=== PATIENT | female | born 1990 | race African-American/Black ===

== ENCOUNTER 2020-02-06 21:05 | Emergency (ER) | payer OTHER ==
--- OUTSIDE RECORDS SUMMARY | 2020-02-06 21:07 | XMS REPORT ---
:1990 Author Organization [facility] t Address [address] [place] [address] Care Team Providers Name Role Phone Unavailable Unavailable Unavailable Problems This patient has no known problems. Allergies, Adverse Reactions, Alerts This patient has no known allergies or adverse reactions. Medications This patient has no known medications.
--- OUTSIDE RECORDS SUMMARY | 2020-02-06 21:08 | XMS REPORT | Summary of Care ---
:1990 Author Organization [facility] - [facility] Address [address] [place] [address] Care Team Providers Name Role Phone Pcp, Does Not Have A Primary Care Provider Encounter Details Date Type Department Care Team Description 12/27/2019 Orders Only [facility] Doctor Unassigned, No [address] [facility] [place] [address] [address] [place] [address] Allergies No Known Allergiesdocumented as of this encounter (statuses as of 12/29/2019) Medications Medication Sig Dispensed Refills Start Date End Date Status vitamin w/FA Take 1 tablet by 100 tablet 3 02/16/2019 Active tabletIndications: mouth daily. Single liveborn, born in hospital, delivered by vaginal delivery, 40 weeks gestation of , Anemia of mother in , antepartum docusate calcium 240 Take 1 capsule by 30 capsule 1 02/16/2019 Active mg mouth once daily capsuleIndications: as needed for Single liveborn, born Constipation. in hospital, delivered by vaginal delivery, 40 weeks gestation of , Anemia of mother in , antepartum ferrous sulfate 325 Take 1 tablet by 60 tablet 2 02/16/2019 Active mg (65 mg iron) mouth 2 (two) tabletIndications: times daily. Single liveborn, born in hospital, delivered by vaginal delivery, 40 weeks gestation of , Anemia of mother in , antepartum ibuprofen 600 mg Take 1 tablet by 30 tablet 0 12/16/2019 Active tabletIndications: mouth every 6 Missed (six) hours. docusate 100 mg Take 1 capsule by 30 capsule 0 12/16/2019 Active capsuleIndications: mouth daily. Missed documented as of this encounter (statuses as of 12/29/2019) Active Problems Problem Noted Date Labor and delivery, indication for care 12/15/2019 18 weeks gestation of 12/15/2019 Liveborn , of [place] , born in [facility] by vaginal 02/16/2019 delivery Anemia of mother in , antepartum 02/15/2019 40 weeks gestation of 02/14/2019 Estimated Date of Delivery Comments Yes 05/16/2020 Based on Other Basis , Per patient documented as of this encounter (statuses as of 12/29/2019) Immunizations Name Administration Dates Next Due Rho (d) Immune Globulin 02/16/2019 (Deferred: Contraindicati on) documented as of this encounter Social History Tobacco Use Types Packs/Day Years Used Date Never Smoker Smokeless Tobacco: Never Used Alcohol Use Drinks/Week oz/Week Comments No Estimated Date of Delivery Comments Yes 05/16/2020 Based on Other Basis , Per patient Sex Assigned at Date Recorded Not on file Job Start Date Occupation Industry Not on file Not on file Not on file Travel History Travel Start Travel End No recent travel history available. documented as of this encounter Last Filed Vital Signs Not on filedocumented in this encounter Plan of Treatment Date Type Specialty Care Team Description 01/01/2020 Routine Visit [facility] Satellites Provider, [facility] Health Maintenance Due Date Last Done Comments VARICELLA VACCINES (1 of 2 - 1991 2-dose childhood series) DTaP,Tdap,and Td Vaccines (1 - 2001 Tdap) PAP SMEAR 2011 INFLUENZA VACCINE (#1) 2019 PNEUMOCOCCAL 0-64 YEARS COMBINED Aged Out No longer eligible based on SERIES patient's age to complete this topic documented as of this encounter Procedures Procedure Name Priority Date/Time Associated Diagnosis Comme nts SCANNED LAB RESULTS Routine 12/27/2019 12:01 AM CDT documented in this encounter Results SCANNED LAB RESULTS (12/27/2019 12:01 AM CDT) Specimen Performing Organization Address City/State/Zipcode Phone Number HIM documented in this encounter Insurance Payer Benefit Plan / Subscriber ID Effective Phone Address T ype Group Dates [employer] xxxxxxxxx 2019-[address] [place] [id number] [place] [address] [facility] xxxxxxxxx 2019-[address]se [address] Medic aid HEALTH CHOICE - [place] [id number] [facility] MEDICAID [place], [place] [phone] documented as of this encounter
--- OUTSIDE RECORDS SUMMARY | 2020-02-06 21:08 | XMS REPORT | Summary of Care ---
:1990 Author Organization [facility] - [facility] Address [address] [place] [address] Care Team Providers Name Role Phone Jessica Cespedes Insurance Hmo Pcp, Does Not Have A Primary Care Provider Encounter Details Date Type Department Care Team Description 11/26/2019 Orders Only [facility] Doctor Unassigned, No [address] [facility] [place] [address] [address] [place] [phone] Allergies No Known Allergiesdocumented as of this encounter (statuses as of 01/03/2020) Medications Medication Sig Dispensed Refills Start Date [...] , Anemia of mother in , antepartum documented as of this encounter (statuses as of 01/03/2020) Active Problems Problem Noted Date Labor and delivery, indication for care 12/15/2019 18 weeks gestation of 12/15/2019 Liveborn , of [place] , born in [facility] by vaginal 02/16/2019 delivery Anemia of mother in , antepartum 02/15/2019 40 weeks gestation of 02/14/2019 documented as of this encounter (statuses as of 01/03/2020) Immunizations Name Administration Dates Next Due Rho (d) Immune Globulin 02/16/2019 (Deferred: Contraindicati on) documented as of this encounter Social History Tobacco Use Types Packs/Day Years Used Date Never Smoker Smokeless Tobacco: Never Used Alcohol Use Drinks/Week oz/Week Comments No Sex Assigned at Date Recorded Not on file Job Start Date Occupation Industry Not on file Not on file Not on file Travel History Travel Start Travel End No recent travel history available. documented as of this encounter Last Filed Vital Signs Not on filedocumented in this encounter Plan of Treatment Health Maintenance Due Date Last Done Comments VARICELLA VACCINES (1 of 2 - 1991 2-dose childhood series) DTaP,Tdap,and Td Vaccines (1 - 2001 Tdap) PAP SMEAR 2011 INFLUENZA VACCINE (#1) 2019 PNEUMOCOCCAL 0-64 YEARS COMBINED Aged Out No longer eligible based on SERIES patient's age to complete this topic documented as of this encounter Procedures Procedure Name Priority Date/Time Associated Diagnosis Comme nts AUTHORIZATION FOR RELEASE Routine 11/26/2019 12:01 AM OF PHI [employer] documented in this encounter Results Not on filedocumented in this encounter Insurance Payer Benefit Plan / Subscriber ID Effective Phone Address [facility] xxxxxxxxx 2019-Prese [address] Medic aid HEALTH CHOICE - HEALTH CHOICE nt [id number] [employer] MEDICAID [place], [place] [id number] documented as of this encounter
--- OUTSIDE RECORDS SUMMARY | 2020-02-06 21:08 | XMS REPORT | Summary of Care ---
:1990 Author Organization [facility] - [facility] Address [address] [place] [id number] Care Team Providers Name Role Phone Jessica Cespedes Insurance Hmo Pcp, Does Not Have A Primary Care Provider Reason for Referral (Routine) Status Reason Specialty Diagnoses / Referred By Contact Refe rred To Procedures Contact New Request Diagnoses Missed Kvng Simmons, Procedures DISCHARGE FOLLOW-UP: [facility] [address] [place] [address]. [place], [place] [address] Phone: Reason for Visit Auth/Cert Status Reason Specialty Diagnoses / Referred By Contact Refe rred To Contact Procedures Obstetrics Diagnoses Term gestation membrane rupture [address] [address] Phone: Fax: Encounter Details Date Type Department Care Team Description 12/15/2019 - Hospital Encounter Obstetrics and Mela Jackson 18 we eks gestation 12/16/2019 Gynecology ([id number] Del Real MD of [address] [place] [address] [id number] [place] [address] [id number] Allergies No Known Allergiesdocumented as of this encounter (statuses as of 12/16/2019) Medications Medication Sig Dispensed Refills Start Date End Date Status vitamin Take 1 tablet 100 tablet 3 02/16/2019 Active w/FA by mouth tabletIndications daily. : Single liveborn, born in hospital, delivered by vaginal delivery, 40 weeks gestation of , Anemia of mother in , antepartum docusate calcium Take 1 capsule 30 capsule 1 02/16/2019 Active 240 mg by mouth once capsuleIndication daily as s: Single needed for liveborn, born in [facility] hospital, delivered by vaginal delivery, 40 weeks gestation of , Anemia of mother in , antepartum ferrous sulfate Take 1 tablet 60 tablet 2 02/16/2019 Active 325 mg (65 mg by mouth 2 iron) (two) times tabletIndications daily. : Single liveborn, born in hospital, delivered by vaginal delivery, 40 weeks gestation of , Anemia of mother in , antepartum ibuprofen 600 mg Take 1 tablet 30 tablet 0 12/16/2019 Active tabletIndications by mouth every : Missed 6 (six) hours. docusate 100 mg Take 1 capsule 30 capsule 0 12/16/2019 Active capsuleIndication by mouth s: Missed daily. ibuprofen 600 mg Take 1 tablet 30 tablet 1 02/16/2019 12/16/19 20 Discontinued tabletIndications by mouth every : Single 6 (six) hours liveborn, born in as needed for hospital, Pain (scale delivered by 1-3) or Pain vaginal delivery, (scale 4-6) 40 weeks (Pain). Take gestation of with food or , Anemia milk. of mother in , antepartum documented as of this encounter (statuses as of 12/16/2019) Active Problems Problem Noted Date Labor and delivery, indication for care 12/15/2019 18 weeks gestation of 12/15/2019 Liveborn infant, of led[place]ma , born in [facility] by vaginal 02/16/2019 delivery Anemia of mother in , antepartum 02/15/2019 40 weeks gestation of 02/14/2019 Estimated Date of Delivery Comments Yes 05/16/2020 Based on Other Basis , Per patient documented as of this encounter (statuses as of 12/16/2019) Immunizations Name Administration Dates Next Due Rho [...] of this encounter Last Filed Vital Signs Vital Sign Reading Time Taken Comments Blood Pressure 109/63 12/16/2019 8:00 AM CDT Pulse 82 12/16/2019 8:00 AM CDT Temperature 36.8 C (98.3 F) 12/16/2019 8:00 AM CDT Respiratory Rate 18 12/16/2019 8:00 AM CDT Oxygen Saturation 100% 12/16/2019 8:00 AM CDT Inhaled Oxygen Concentration - - Weight 68 kg (150 lb) 12/15/2019 3:00 AM CDT Height - - Body Mass Index 25.75 02/15/2019 5:06 AM CDT documented in this encounter Discharge Summaries Barbara Díaz MD - 12/16/2019 7:38 AM CDT DISCHARGE SUMMARY - ADMIT DATE: 12/15/2019 DISCHARGE DATE: 12/16/2019 ATTENDING MD AT DISCHARGE: Kvng Simmons MD RESIDENT MD: Barbara Díaz MD REASON FOR ADMISSION 18 weeks gestation of FINAL DIAGNOSIS: 18 weeks gestation of Labor and delivery, indication for care SECONDARY DIAGNOSIS: Past Medical History: Diagnosis Date Anemia of mother in , antepartum 02/15/2019 STD (sexually transmitted disease) PROCEDURES: Procedure: DILATION AND CURETTAGE CPT(R) Code: 34852 - UT D&C AFTER DELIVERY HOSPITAL COURSE: Briefly, Sivakumar Campbell is a 29 year old who was admitted to [facility] on 12/15/2019 for missed . She underwent a Cephalic vaginal delivery. During this hospital admission she was also treated for hemorrhage with medications. She was ambulating, tolerating aregular diet with good pain control on day # 1. The patient is medically stable for discharge home to the care of her family with care instructions reviewed and with home meds prescribed. She is to follow-up in clinic as directed. CONDITION: Good DIET: Regular Diet; Texture: Regular Regular Diet; Texture: Regular. ACTIVITY: Physical activities as tolerated. No strenuous exercise or heavy lifting until 6-8 weeks . DISCHARGE MEDICATIONS: Current Discharge Medication List START taking these medications Details docusate (COLACE) 100 mg Take 100 mg by mouth daily. Qty: 30 capsule, Refills: 0 Start date: 12/16/2019 Associated Diagnoses: Missed CONTINUE these medications which have CHANGED Details ibuprofen (IBU) 600 mg Take 600 mg by mouth every 6 (six) hours. Qty: 30 tablet, Refills: 0 Start date: 12/16/2019 Associated Diagnoses: Missed CONTINUE these medications which have NOT CHANGED Details docusate calcium (SURFAK) 240 mg Take 240 mg by mouth once daily as needed for Constipation. Qty: 30 capsule, Refills: 1 Associated Diagnoses: Single liveborn, born in hospital, delivered by vaginal delivery; 40 weeks gestation of ; Anemia of mother in , antepartum ferrous sulfate 325 mg Take 325 mg by mouth 2 (two) times daily. Qty: 60 tablet, Refills: 2 Associated Diagnoses: Single liveborn, born in hospital, delivered by vaginal delivery; 40 weeks gestation of ; Anemia of mother in , antepartum vitamin w/FA (PRENATABS RX) 1 tablet Take 1 tablet by mouth daily. Qty: 100 tablet, Refills: 3 Associated Diagnoses: Single liveborn, born in hospital, delivered by vaginal delivery; 40 weeks gestation of ; Anemia of mother in , antepartum WOUND CARE: The patient was instructed to keep delivery lacerations (if any) clean and dry with soap and water in shower, dry gently with clean towel. She was instructed to return to ER if Temp > 101F, foul-smelling vaginal discharge, headache unresolved with pain medications, visual disturbances including double or blurry vision, seeing spots, upper abdominal pain, or vaginal bleeding greater than 1 pad per hour. Pelvic rest 4-6 weeks, and no heavy lifting. DISCHARGE: Discharged: Home FOLLOW-UP APPOINTMENT: No future appointments. Barbara Díaz MD Associated attestation - Kvng Simmons MD - 12/16/2019 8:08 AM CDTI was faculty on 12/16/2019 and agree with assessment and note by Dr. Díaz . Patient has been evaluated by provider and is deemed stable for discharge. See summary Kvng Simmons MD documented in this encounter Discharge Instructions Sary Zuniga RN - 12/16/2019 Patient Discharge Instructions Discharge date: 12/16/2019 Procedure(s): Procedure(s): DILATION AND CURETTAGE Discharge Orders Regular Diet; Texture: Regular. Texture Regular. Diabetic: No Discharge Condition - GOOD Discharge Condition: GOOD Discharge Activity: - Ambulate with Pelvic Rest x 6 weeks DISCHARGE FOLLOW-UP: [facility] Order Comments: For Patients - return to clinic in 5-7 days for staple removal. If [facility] clinic, Nursing Staff to call clinic for follow-up appointment. [facility]: 2 Weeks Patient Discharge Instructions - Vaginal Delivery Order Comments: Return to ER if Temp > 100.4 F, headache unresolved with pain medications, visual disturbances including double or blurry vision, seeing spots, or upper abdominal pain. Pelvic rest 4 to 6 weeks, and no heavy lifting. Follow instructions as indicated below: 1. The medication that was used will be acting in your system for the next 24 hours, so you might feel a little drowsy, with impaired judgment and or motor function. This feeling should go wear off. Because the medication is still in your system for the next 24 hours you SHOULD NOT: Drive a car, operate machinery or power tool. Drink any alcohol beverages (including beer or wine). Make any important decisions or sign any legal documents. 2. You should rest the remainder of the day and not engage in any physical activity. Move slowly today. After lying down, sit on the edge of the bed for a moment before standing. YOU ARE RESPONSIBLEFOR HAVING SOMEONE AT HOME WITH YOU DURING THE AFTERNOON AND NIGHT IMMEDIATELY FOLLOWING YOUR SURGERY. Patient should cough and deep breathe every 2-4 hours while awake to avoid respiratory complications. 4. Lifting: {IP DISCHARGE INSTRUCTIONS LIFTIN::"No medical restrictions"} 5. Weight: In general, sudden weight gains or losses should be reported to your provider. Cardiac patients should weigh daily and notify their provider for a weight gain of 3 pounds per day or 5 pounds per week. 6. Tobacco Avoidance: Follow recommendations below 7. Because the medications used could procedure some residual nausea and vomiting after you go home,you should eat lightly today, starting with clear liquids (broth, soft drinks, apple juice, jello) and toast or crackers, progressing to bland solid foods and then to your normal diet as tolerated, unle ss otherwise stated by your surgeon. If you get sick, wait a couple of hours and then begin to eat. After 24 hours the nausea should be gone. 8. You may experience some pain and your physician will advise you on what to take for discomfort. This should be taken as directed. If the pain is not relieved, contact your physician. You may alsohave a sore throat from the airway that was in place. You may uses lozenges, throat spray (such as C hloraseptic), or warm salt water gargles for symptomatic relief. 9. If you feel warm, take your temperature. If it is 101 degrees or above call your physician. 10. If you are unable to urinate within five hours after your procedure, call your physician. 11. The type of surgery performed will determine how much bleeding (if any) to expect. Normally, some spotting might occur. If your dressing pad becomes saturated, notify your physician. Elevate surgical site, if applicable, to reduced swelling and pain. 12. Wound/dressing care: Tips on preventing a surgical site infection.. Dont smoke. It is best to quit at least 30 days before surgery, but quitting after surgery is also helpful. If you are diabetic, keep your blood sugar well controlled. WASH YOUR HANDS. Keep your wound clean and remember to wash your hands before and after contact with the area. All health care workers should also wash their hands or use an alcohol based hand rub prior to examining you. If antibiotics are prescribed, take them as directed. Finish the entire course of antibiotics. Call your doctor if you have signs of infection: ? Increased tenderness at the surgical site ? Red streaks or increased redness of the area ? Bad-smelling discharge from the incision ? Fever of 101F or higher ? General tired feeling that doesnt improve 13. Other discharge instructions: {DC IP DISCHARGE INSTRUCTIONS OTHER:21273} 14. Special Instructions: Take Home Medications These are medications ordered for you by your healthcare provider. Do not take any other medications or supplements unless advised by your healthcare provider. Current Discharge Medication List START taking these medications Details docusate 100 mg capsule Take 1 capsule by mouth daily. Qty: 30 capsule, Refills: 0 Associated Diagnoses: Missed CONTINUE these medications which have CHANGED Details ibuprofen 600 mg tablet Take 1 tablet by mouth every 6 (six) hours. Qty: 30 tablet, Refills: 0 Associated Diagnoses: Missed CONTINUE these medications which have NOT CHANGED Details docusate calcium 240 mg capsule Take 1 capsule by mouth once daily as needed for Constipation. Qty: 30 capsule, Refills: 1 Associated Diagnoses: Single liveborn, born in hospital, delivered by vaginal delivery; 40 weeks gestation of ; Anemia of mother in , antepartum ferrous sulfate 325 mg (65 mg iron) tablet Take 1 tablet by mouth 2 (two) times daily. Qty: 60 tablet, Refills: 2 Associated Diagnoses: Single liveborn, born in hospital, delivered by vaginal delivery; 40 weeks gestation of ; Anemia of mother in , antepartum vitamin w/FA tablet Take 1 tablet by mouth daily. Qty: 100 tablet, Refills: 3 Associated Diagnoses: Single liveborn, born in hospital, delivered by vaginal delivery; 40 weeks gestation of ; Anemia of mother in , antepartum Follow-up appointments: Your follow up appointment with your surgeon has been made. Appointment Date: , Appointment Time . For questions regarding follow-up instructions call the [facility] Hotline at or If you experience any of the following symptoms , please follow up with . For worsening symptoms/changing condition/problems or questions: Non-emergency/urgent: Call the [facility] Hotline at or or Emergency: Go to the closest emergency room or call 456 Translated by Date Time If you receive the patient satisfaction survey by mail please complete and return and let us know how we are doing. TOBACCO AVOIDANCE Exposure to tobacco either from smoking or from second hand (environmental) smoke or smokeless tobacco (snuff) is damaging to your health. This information is to encourage everyone to avoid tobacco exposure. It is recommended that you: ? If you smoke or use smokeless tobacco, we encourage you to quit. ? If you have already quit smoking, continue your good work! ? If you do not smoke or use smokeless tobacco, do not start. ? Avoid secondhand smoke. Additional Resources You may want to contact these organizations for further information on smoking and how to quit. [place] [employer], http://www.lungusa.org/stop-smoking/ [place] [employer], http://www.cancer.org/Healthy/StayAwayfromTobacco/index [place] [employer], http://www.heart.org/HEARTORG/GettingHealthy/QuitSmoking/Quit-Smoking_[facility] _001085_SubHomePage.jsp AttachmentsThe following attachments cannot be sent through Care Everywhere. Miscarriage, Discharge Instructions ([place])Miscarriage,Understanding: During a Miscarriage ([place])Miscarriage,Understanding: Emotions ([place]) Miscarriage,Understanding: Recovery ([place])documented in this encounter Progress Notes Deya Cole MD - 12/16/2019 7:07 AM CDTR1 [facility] CALL PROGRESS NOTE Russellalberto Linares Shannan [id number] 12/16/2019, 7:07 AM Notified by RN that patient would like to go home as early as possible this morning. Deya Cole MD PGY-1, Obstetrics and Gynecology Barbara Bailey MD - 12/16/2019 6:54 AM CDT PROGRESS NOTE 12/16/2019 6:54 AM Subjective: Overnight patient had no complaints. Her pain is well controlled on oral pain medications. She is tolerating a regular diet. She has passed flatus. She is ambulating without difficulty. Lochia is Scant. She is urinating without hua. Patient denies chest pain, SOB, n/v, headache, RUQ pain, vision changes, dizziness. Objective: VITALS: Patient Vitals for the past 24 hrs: BP Temp Temp src Pulse Resp SpO2 12/16/19 0430 106/52 36.3 C (97.3 F) Oral 74 17 98 % 12/15/19 2245 109/51 36.7 C (98 F) Oral 78 17 100 % 12/15/19 2100 89 100 % 12/15/19 1807 109/52 37 C (98.6 F) Oral 93 18 100 % 12/15/19 1600 114/60 36.7 C (98.1 F) Axillary 82 18 100 % 12/15/19 1300 107/65 74 18 100 % 12/15/19 1200 (!) 115/91 78 18 100 % 12/15/19 1100 109/54 72 18 99 % 12/15/19 1000 111/66 76 18 100 % 12/15/19 0900 111/64 77 17 100 % 12/15/19 0830 107/62 72 18 98 % 12/15/19 0800 114/66 76 18 100 % 12/15/19 0730 110/72 83 18 100 % 12/15/19 0700 117/63 36.9 C (98.4 F) Oral 72 16 100 % PE: General: patient alert and in no acute distress Lungs: clear to auscultation bilaterally Cardiology: regular rate and rhythm, no murmur Abdomen: normal tenderness to palpation, soft, bowel sounds present. Fundus is firm and at umbilicus Extremities: no clubbing, cyanosis, or edema : deferred MEDS: Current Facility-Administered Medications Medication Dose Route Frequency Last Rate Last Dose D5W-LR IV infusion 1,000 mL 1,000 mL IV Infusion CONTINUOUS diphenhydrAMINE (BENADRYL) injection 25 mg 25 mg Slow IV Push Q4HPRN docusate (COLACE) capsule 100 mg 100 mg Oral DAILY 100 mg at 12/15/19 1150 FENTanyl PF (SUBLIMAZE (PF)) injection 25 mcg 25 mcg Slow IV Push Q5MIN PRN ibuprofen (IBU) tablet 600 mg 600 mg Oral Q6H 600 mg at 12/15/19 2119 lactated ringers IV infusion 1,000 mL 1,000 mL IV Infusion CONTINUOUS 75 mL/hr at 12/15/19 79857,000 mL at 12/15/19 0745 lactated ringers IV infusion 500 mL 500 mL IV Infusion PRN - SEE INSTRUCTIONS lidocaine 1% (PF) (XYLOCAINE) injection 0.3 mL 0.3 mL Infiltration PRN - SEE INSTRUCTIONS naloxone (NARCAN) injection 0.1 mg 0.1 mg Slow IV Push SEE-INSTRUCTIONS ondansetron (ZOFRAN (PF)) injection 4 mg 4 mg Slow IV Push PRN sennosides (SENOKOT) tablet 8.6 mg 8.6 mg Oral DAILY Stopped at 12/15/19 0900 sodium citrate-citric acid (BICITRA) 500-334 mg/5 mL solution 30 mL 30 mL Oral PRE-PROCEDURE ONCE sodium citrate-citric acid (BICITRA) 500-334 mg/5 mL solution 30 mL 30 mL Oral PRE-PROCEDURE ONCE LABS: WBC (10*3/L) Date Value 12/15/2019 12.96 (H) 12/15/2019 10.85 HGB (g/dL) Date Value 12/15/2019 8.3 (L) 12/15/2019 7.9 (L) HCT (%) Date Value 12/15/2019 24.6 (L) 12/15/2019 23.2 (L) PLT (10*3/L) Date Value 12/15/2019 156 (L) 12/15/2019 149 (L) Assessment: Sivakumar Campbell is a 29 year old PPD#1 s/p at 18w1d on 12/15/19 at 0313 complicated by hemorrhage requiring D&C and multiple uterotonics. Patient is recovering well: hemodynamically stable, good UOP, pain well-controlled, vitals within normal limits. PLAN Review: - Admitted for: PPROM - Estimated blood loss: 2000 ml - Laceration: none - Vaginal delivery Complications: PPH requiring 40U pitocin, 0.2 mg methergine, 250 mcg Hemabate, and 1g TXA - Predelivery H/H: 8.2 - Postdelivery H/H: 7.9 - 4 hours after delivery H/H: 8.3 - s/p 24h methergine and Ancef care: - Diet: Regular diet - Fluid: Encourage oral intake - Activity: Encourage ambulation - Pain: Tylenol and Ibuprofen - DVT prophylaxis: Encourage ambulation Antepartum course reviewed - Per patient no issues in this ; transfer from [facility] - Denies smoking/ drinking/ drug use - UDS pending - desires to establish care with [facility], will go to [facility] - contraception: condoms Baby's Status: -demise, microarray collected per patient request Dispo: PPD#1. Patient was 24h PP @ 0313. Stable overnight, meeting all milestones. Patient feels ready to go home. Adequate for discharge on PPD#1. Barbara Díaz MD Taylor, Doreen Jeter MD - 12/15/2019 8:00 AM CDT PPD#0 PROGRESS NOTE 12/15/2019 8:00 AM SUBJECTIVE: Pt is comfortable this morning. Her pain is well controlled on [facility]. She is not yet ambulating without difficulty or dizziness. Locia is scant. She has hua in place. Patient denies CP, SOB, n/v, headache, RUQ pain, vision changes, dizziness. OBJECTIVE: VITALS: Patient Vitals for the past 24 hrs: BP Temp Temp src Pulse Resp SpO2 Weight 12/15/19 0730 110/72 83 18 100 % 12/15/19 0700 117/63 36.9 C (98.4 F) Oral 72 16 100 % 12/15/19 0630 113/71 36.8 C (98.2 F) Oral 81 15 100 % 12/15/19 0600 108/64 36.5 C (97.7 F) Oral 73 16 100 % 12/15/19 0535 104/74 74 16 100 % 12/15/19 0520 115/66 74 14 100 % 12/15/19 0505 116/68 77 16 100 % 12/15/19 0450 102/59 36.6 C (97.8 F) Oral 76 20 100 % 12/15/19 0435 94/53 83 15 100 % 12/15/19 0420 100/54 75 17 100 % 12/15/19 0327 106/86 96 20 100 % 12/15/19 0325 84 18 100 % 12/15/19 0315 (!) 145/89 84 18 100 % 12/15/19 0305 87 18 99 % 12/15/19 0300 (!) 141/71 87 18 99 % 68 kg (150 lb) 12/15/19 0245 133/67 85 18 100 % PE: GEN: NAD, A&O x 3, normal mood and affect CV: RRR, no MGR, normal S1/S2 PULM: CTAB, no WRR, good inspiratory effort ABD: +BS, soft, appropriately TTP, ND, no rebound or guarding, fundus firm and below umbilicus EXT: No calf tenderness bilaterally LABS: WBC (10*3/L) Date Value 12/15/2019 10.85 12/15/2019 6.77 HGB (g/dL) Date Value 12/15/2019 7.9 (L) 12/15/2019 8.2 (L) HCT (%) Date Value 12/15/2019 23.2 (L) 12/15/2019 23.8 (L) PLT (10*3/L) Date Value 12/15/2019 149 (L) 12/15/2019 171 MEDS: Current Facility-Administered Medications Medication Dose Route Frequency Last Rate Last Dose ceFAZolin in dextrose (iso-os) (ANCEF) 2 gram/100 mL Piggyback 2 g 2,000 mg IV Piggyback Q8H ABX Stopped at 12/15/19 0530 D5W-LR IV infusion 1,000 mL 1,000 mL IV Infusion CONTINUOUS diphenhydrAMINE (BENADRYL) injection 25 mg 25 mg Slow IV Push Q4HPRN docusate (COLACE) capsule 100 mg 100 mg Oral DAILY FENTanyl PF (SUBLIMAZE (PF)) injection 25 mcg 25 mcg Slow IV Push Q5MIN PRN HYDROcodone-acetaminophen (NORCO 5) 5-325 mg tablet 1 tablet 1 tablet Oral ONCE lactated ringers IV infusion 1,000 mL 1,000 mL IV Infusion CONTINUOUS lactated ringers IV infusion 500 mL 500 mL IV Infusion PRN - SEE INSTRUCTIONS lidocaine 1% (PF) (XYLOCAINE) injection 0.3 mL 0.3 mL Infiltration PRN - SEE INSTRUCTIONS methylergonovine (METHERGINE) injection 0.2 mg 0.2 mg Intramuscular Q6H 0.2 mg at 12/15/19 0645 morpHINE 2 mg/mL LOAD & RESCUE INJECTION SYRG Slow IV Push SEE-INSTRUCTIONS morpHINE 30 mg/30 mL (fixed dose) T[employer] injection Intravenous CONTINUOUS 30 mg at 12/15/19 0529 naloxone (NARCAN) injection 0.1 mg 0.1 mg Slow IV Push SEE-INSTRUCTIONS ondansetron (ZOFRAN (PF)) injection 4 mg 4 mg Slow IV Push PRN sennosides (SENOKOT) tablet 8.6 mg 8.6 mg Oral DAILY sodium citrate-citric acid (BICITRA) 500-334 mg/5 mL solution 30 mL 30 mL Oral PRE-PROCEDURE ONCE sodium citrate-citric acid (BICITRA) 500-334 mg/5 mL solution 30 mL 30 mL Oral PRE-PROCEDURE ONCE ASSESSMENT Sivakumar Campbell is a 29 year old PPD#0 s/p at 18w1d on 12/15/19 at 0313 complicated by hemorrhage requiring D&C and multiple uterotonics. Patient is recovering well: hemodynamically stable, good UOP, pain well-controlled, vitals within normal limits. PLAN Review: - Admitted for: PPROM - Estimated blood loss: 2000 ml - Laceration: none - Vaginal delivery Complications: PPH requiring 40U pitocin, 0.2 mg methergine, 250 mcg Hemabate, and 1g TXA - Predelivery H/H: 8.2 - Postdelivery H/H: 7.9 - 4 hours after delivery H/H: 8.3 care: - Diet: Regular diet - Fluid: Encourage oral intake - Activity: Encourage ambulation - Pain: Tylenol and Ibuprofen - DVT prophylaxis: Encourage ambulation Antepartum course reviewed - Per patient no issues in this ; transfer from [facility] - Denies smoking/ drinking/ drug use - UDS pending Baby's Status: -demise, microarray collected per patient request Dispo: Pt is PPD #0, anticipate discharge PPD#1 if remains stable. Doreen Villatoro MD 12/15/2019 8:00 AM Associated attestation - Mela Jackson MD - 12/15/2019 9:31 AM CDTI was rounding faculty for this patient and involved in planning. The patient was seen and examined by me. PLease see note of plan below. 29 year old PPD#0 s/p at 18w1d on 12/15/19 at 0313 complicated by hemorrhage requiring D&C and multiple uterotonics. Review: - Admitted for: PPROM - Estimated blood loss: 2000 ml - Laceration: none - Vaginal delivery Complications: PPH requiring 40U pitocin, 0.2 mg methergine, 250 mcg Hemabate, and 1g TXA - Predelivery H/H: 8.2 - Postdelivery H/H: 7.9 - 4 hours after delivery H/H: 8.3 - for 24 hours of abx and methergine care: - Diet: Regular diet - Fluid: Encourage oral intake - Activity: Encourage ambulation - Pain: Tylenol and Ibuprofen - DVT prophylaxis: Encourage ambulation Antepartum course reviewed - Per patient no issues in this ; transfer from [facility] - Denies smoking/ drinking/ drug use - UDS pending Baby's Status: -demise, microarray collected per patient request Dispo: Pt is PPD #0, anticipate discharge PPD#1 if remains stable. documented in this encounter Plan of Treatment Date Type Specialty Care Team Description 01/01/2020 Routine Visit OB Satellites Provider, [facility] Temp Name Type Priority Associated Diagnoses Date/Ti fl SURGICAL PATHOLOGY EXAM LAB STAT 12/02 3:50 AM CDT URINE DRUG (LCMSMS) - LAB GURDEEP 2019 9:08 AM CDT SYNTHETIC OPIATES PANEL URINE DRUG (LCMSMS) - LAB GURDEEP 2019 9:08 AM CDT OPIATES PANEL Name Type Priority Associated Diagnoses Order S chedule SURGICAL PATHOLOGY EXAM LAB Routine ONCE for 1 Occurrences starting 2019, 1 completed ACUTE CARE VENOUS BLOOD LAB GURDEEP ONCE for 1 Occurrences GAS starting 2019 until 12/15/2019 URINE DRUG (LCMSMS) - LAB GURDEEP ONCE f or 1 Occurrences SYNTHETIC OPIATES PANEL star ting 12/15/2019 until 12/15/2019, 1 c ompleted URINE DRUG (LCMSMS) - LAB GURDEEP ONCE f or 1 Occurrences OPIATES PANEL starting 12/14 until 12/15/2019, 1 c ompleted SURGICAL PATHOLOGY EXAM LAB Routine ONCE for 1 Occurrences starting 2019 until 12/15/2019 Health Maintenance Due Date Last Done Comments VARICELLA VACCINES (1 of 2 - 1991 2-dose childhood series) DTaP,Tdap,and Td Vaccines (1 - 2001 Tdap) PAP SMEAR 2011 INFLUENZA VACCINE (#1) 2019 PNEUMOCOCCAL 0-64 YEARS COMBINED Aged Out No longer eligible based on SERIES patient's age to complete this topic documented as of this encounter Procedures Procedure Name Priority Date/Time Associated Comments Diagnosis GALV/CLC ONLY - URINE GURDEEP 12/15/2019 9:08 Re sults for this DRUG (IMMUNOASSAY) - AM CDT procedu re are in COMPREHENSIVE DRUG the resul ts SCREEN section. CBC WITH DIFFERENTIAL STAT 12/15/2019 8:05 Re sults for this AM CDT procedure are i n the results section. CBC WITH DIFFERENTIAL STAT 12/15/2019 8:05 Re sults for this AM CDT procedure are i n the results section. GALV ONLY - SYPHILIS GURDEEP 12/15/2019 4:57 Res ults for this IGG/IGM AM CDT procedure are i n the results section. HEPATITIS B SURFACE GURDEEP 12/15/2019 4:57 Resu lts for this ANTIGEN AM CDT procedure are i n the results section. PROFILE / HEMOGRAM STAT 12/15/2019 4:57 Resul ts for this AM CDT procedure are i n the results section. HB ABO GROUPING GURDEEP 12/15/2019 4:27 Results for this AM CDT procedure are i n the results section. CBC WITH DIFFERENTIAL STAT 12/15/2019 4:01 Re sults for this AM CDT procedure are i n the results section. CBC WITH DIFFERENTIAL STAT 12/15/2019 4:01 Re sults for this AM CDT procedure are i n the results section. FIBRINOGEN STAT 12/15/2019 4:00 Results for this AM CDT procedure are i n the results section. ACTIVATED PARTIAL STAT 12/15/2019 4:00 Result s for this THRMPLAS BRIAN AM CDT procedure are i n the results section. PROTHROMBIN TIME / INR STAT 12/15/2019 4:00 R esults for this AM CDT procedure are i n the results section. documented in this encounter Results GALV/CLC ONLY - URINE DRUG (IMMUNOASSAY) - COMPREHENSIVE DRUG SCREEN (12/15/2019 9:08 AM CDT) AMPHET Negative Negative [facility] AMPARO U Negative Negative [facility] BENZO U Negative Negative [facility] Cocaine Metabolite Negative Negative [facility] METHADONE Negative Negative [facility] OPIATES Presumptive Negative [facility] Positive (A) SERVICES PCP Negative Negative [facility] THC Negative Negative [facility] Specimen Urine - URINE, CLEAN CATCH Narrative Performed At Urine Drug Cutoff Ranges [facility] Cocaine: 150 ng/mL Benzodiazepines: 200 ng/mL Methadone: 300 ng/mL Amphetamine: 1,000 ng/mL Opiates: 300 ng/mL Cannabinoids: 50 ng/mL Phencyclidine: 25 ng/mL Barbiturates: 200 ng/mL The results are to be used only for medical (i.e., treatment) purposes. Unconfirmed screening results mus t not be used for non-medical purposes (e.g., employment braeden ting, legal testing). Performing Organization Address City/State/Zipcode Phone Number [facility] CLIA: [id number], [address] [place], [place] [address] [facility] CBC WITH DIFFERENTIAL (12/15/2019 8:05 AM CDT) WBC 12.96 (H) 4.30 - 11.10 [facility] 10*3/L SERVICES RBC 3.57 (L) 3.93 - 5.25 [facility] 10*6/L SERVICES HGB 8.3 (L) 11.6 - 15.0 [facility] g/dL SERVICES HCT 24.6 (L) 35.7 - 45.2 [facility] % SERVICES MCV 68.9 (L) 80.6 - 95.5 [facility] fL SERVICES MCH 23.2 (L) 25.9 - 32.8 [facility] pg SERVICES MCHC 33.7 31.6 - 35.1 [facility] g/dL SERVICES RDW-SD 51.6 (H) 39.0 - 49.9 [facility] fL SERVICES RDW-CV 20.9 (H) 12.0 - 15.5 [facility] % SERVICES PLT 156 (L) 166 - 358 [facility] 10*3/L SERVICES MPV Comment: Not [facility] Measured SERVICES IPF % 5.1Comment: 1.3 - 7.7 % [facility] Platelet count SERVICES measured by fluorescence method. NRBC/100 WBC 0.0 0.0 - 10.0 [facility] /100 WBCs SERVICES NRBC x10^3 <0.01 10*3/L [facility] GRAN MAT (NEUT) % 88.3 % [facility] IMM GRAN % 0.40 % [facility] LYMPH % 6.5 % [facility] MONO % 4.4 % [facility] EOS % 0.2 % [facility] BASO % 0.2 % [facility] GRAN MAT x10^3(ANC) 11.44 (H) 1.88 - 7.09 [facility] 10*3/uL SERVICES IMM GRAN x10^3 0.05 0.00 - 0.06 [facility] 10*3/uL SERVICES LYMPH x10^3 0.84 (L) 1.32 - 3.29 [facility] 10*3/uL SERVICES MONO x10^3 0.57 0.33 - 0.92 [facility] 10*3/uL SERVICES EOS x10^3 0.03 0.03 - 0.39 [facility] 10*3/uL SERVICES BASO x10^3 0.03 0.01 - 0.07 [facility] 10*3/uL SERVICES SCHISTOCYTES 1+ (A) [facility] Specimen Blood - VENOUS Performing Organization Address City/[facility] Cent[facility]ode Phone Number [facility] CLIA: [id number], [address] [place] [address] [address] [facility] GALV ONLY - SYPHILIS IGG/IGM (12/15/2019 4:57 AM CDT) Pathologist Sig nature Syphilis IgG/IgM Non-reactive Non-reactive [facility] Specimen Blood - VENOUS Narrative Performed At [facility] Non-reactive - No serologic evidence of T. pallidum infection. Cannot exclude incubating or early syphilis . Submit a second specimen in 2-4 weeks if syphilis is clinically suspected. Equivocal - Further testing to follow. Reactive - Further testing to follow. Performing Organization Address City/[facility]/Zipcode Phone Number [facility] CLIA: [id number], [address] [place] [address] [address] [facility] Hepatitis B Surface Antigen (12/15/2019 4:57 AM CDT) Pathologist Sig nature HBsAg Negative Negative [facility] HBsAg 0.05 [facility] Semi-Quantitative SERVICES Specimen Blood - VENOUS Performing Organization Address City/[facility]/Zipcode Phone Number [facility] CLIA: [id number], [address] [place] [address] [address] [facility] PROFILE / HEMOGRAM (12/15/2019 4:57 AM CDT) WBC 10.85 4.30 - 11.10 [facility] 10*3/L SERVICES RBC 3.29 (L) 3.93 - 5.25 [facility] 10*6/L SERVICES HGB 7.9 (L) 11.6 - 15.0 [facility] g/dL SERVICES HCT 23.2 (L) 35.7 - 45.2 % [facility] MCH 24.0 (L) 25.9 - 32.8 pg [facility] MCV 70.5 (L) 80.6 - 95.5 fL [facility] MCHC 34.1 31.6 - 35.1 [facility] g/dL SERVICES PLT 149 (L) 166 - 358 [facility] 10*3/L SERVICES MPV Comment: Not [facility] Measured SERVICES RDW-CV 21.2 (H) 12.0 - 15.5 % [facility] SERVICES RDW-SD 53.3 (H) 39.0 - 49.9 fL [facility] NRBC x10^3 <0.01 10*3/L [facility] NRBC/100 WBC 0.0 0.0 - 10.0 /100 [facility] WBCs SERVICES IPF % [facility] Specimen Blood - VENOUS Performing Organization Address City/State/Zipcode Phone Number [facility] CLIA: [id number], [address] [place] [address] [address] [facility] Type and Screen - ONCE GURDEEP (12/15/2019 4:27 AM CDT) Pathologist Sig nature ABO & RH O POSITIVE LAB Comment: Performed at [facility] Laboratory Services - [facility] Blood [place] [address] Toll Free: [phone] CLIA No. [id number] IAT Negative LAB Comment: Performed at [facility] Laboratory Services - [facility] Blood [place] [id number] Toll Free: [phone] CLIA No. [id number] Specimen Blood Performing Organization Address City/State/Zipcode Phone Number BLD [facility] CBC WITH DIFFERENTIAL (12/15/2019 4:01 AM CDT) Pathologist [facility] WBC 6.77 4.30 - 11.10 [facility] 10*3/L SERVICES RBC 3.40 (L) 3.93 - 5.25 [facility] 10*6/L SERVICES HGB 8.2 (L) 11.6 - 15.0 [facility] g/dL SERVICES HCT 23.8 (L) 35.7 - 45.2 % [facility] MCV 70.0 (L) 80.6 - 95.5 [facility] fL SERVICES MCH 24.1 (L) 25.9 - 32.8 [facility] pg SERVICES MCHC 34.5 31.6 - 35.1 [facility] g/dL SERVICES RDW-SD 52.0 (H) 39.0 - 49.9 [facility] fL SERVICES RDW-CV 21.0 (H) 12.0 - 15.5 % [facility] PLT 171 166 - 358 [facility] 10*3/L SERVICES MPV Comment: Not [facility] Measured SERVICES IPF % 6.7Comment: Platelet 1.3 - 7.7 % [facility] count measured by SERVICES fluorescence method. NRBC/100 WBC 0.0 0.0 - 10.0 [facility] /100 WBCs SERVICES NRBC x10^3 <0.01 10*3/L [facility] GRAN MAT (NEUT) % 68.0 % [facility] IMM GRAN % 0.40 % [facility] LYMPH % 22.3 % [facility] MONO % 7.2 % [facility] EOS % 1.8 % [facility] BASO % 0.3 % [facility] GRAN MAT 4.60 1.88 - 7.09 [facility] x10^3(ANC) 10*3/uL SERVICES IMM GRAN x10^3 0.03 0.00 - 0.06 [facility] 10*3/uL SERVICES LYMPH x10^3 1.51 1.32 - 3.29 [facility] 10*3/uL SERVICES MONO x10^3 0.49 0.33 - 0.92 [facility] 10*3/uL SERVICES EOS x10^3 0.12 0.03 - 0.39 [facility] 10*3/uL SERVICES BASO x10^3 <0.03 0.01 - 0.07 [facility] 10*3/uL SERVICES Specimen Blood - HAND, LEFT Performing Organization Address City/State/Zipcode Phone Number [facility] CLIA: [id number], [address] [place] [address] [address] [facility] FIBRINOGEN (12/15/2019 4:00 AM CDT) Pathologist Sig aaron Fibrinogen 380 167 - 453 mg/dL [facility] Specimen Blood - HAND, LEFT Performing Organization Address [facility] Centercomn Phone Number [facility] CLIA: [id number], [address] [place] [address] [address] [facility] PROTHROMBIN TIME / INR (12/15/2019 4:00 AM CDT) PROTIME PATIENT 12.4 10.1 - 12.6 [facility] Seconds SERVICES INR 1.1Comment: Normal [facility] INR <1.1; Warfarin SERVICES Therapeutic range 2.0 to 3.0 or 2.5 to 3.5, depending upon the indications. Specimen Blood - HAND, LEFT Performing Organization Address [facility] Phone Number [facility] CLIA: [id number], [address] [place] [address] [address] [facility] aPTT (12/15/2019 4:00 AM CDT) Pathologist Sig aaron APTT Patient 24 (L) 26 - 36 Seconds [facility] Specimen Blood - HAND, LEFT Performing Organization Address [facility] Centercomn Phone Number [facility] CLIA: [id number], [address] [place] [address] [facility] documented in this encounter Visit Diagnoses Diagnosis 18 weeks gestation of - Primar y state, incidental Missed Labor and delivery, indication for care Unspecified indication for care or inter vention related to labor and delivery, unspecified as to episode of care documented in this encounter Administered Medications Medication Order MAR Action Action Date Dose Rate Site [id number] IV infusion 1,000 mL at 125 mL/hr, IV Infusion, CONTINUOUS, Starting Wed at 0330, Until Discontinued, Routine diphenhydrAMINE (BENADRYL) injection 25 mg 25 mg, Slow IV Push, Q4HPRN, Starting Wed12/15/19 at 0 449, Until Discontinued, Routine, Itching docusate (COLACE) capsule 100 mg Given 12/15/2019 11:50 AM CDT 100 mg 100 mg, Oral, DAILY, First dose on Wed12/15/19 at 0900, Until Discontinued, Routine FENTanyl PF (SUBLIMAZE (PF)) injection 2 5 mcg 25 mcg, Slow IV Push, Q5MIN PRN, 4 doses, Starting Wed12/15/19 at 0735, Until Discontinued, Routine, Pain (scale 4-6), PACU ibuprofen (IBU) tablet 600 mg Given 12/15/2019 9:19 PM CDT 600 mg 600 mg, Oral, Q6H, First dose on Wed12/15/19 at 1345, Until Discontinued, Routine lactated ringers IV infusion New Bag 12/15/2019 7:45 AM CDT 1,000 mL 75 mL/hr 1,000 mL at 75 mL/hr, 1,000 mL, IV Infusion, CONTINUOUS, Starting Wed12/15/19 at 0745, Until Discontinued, Routine, PACU lactated ringers IV infusion 500 mL at 999 mL/hr, 500 mL, IV Infusion, PRN - SEE INSTRUCTIONS, Starting Wed12/15/19 at 0317, Until Discontinued, Routine lidocaine 1% (PF) (XYLOCAINE) injection 0.3 mL 0.3 mL, Infiltration, PRN - SEE INSTRUCT IONS, Starting Wed12/15/19 at 0317, Until Discontinued, Routine, Local anesthesia, For IV line p lacement only as a local anesthetic. naloxone (NARCAN) injection 0.1 mg 0.1 mg, Slow IV Push, SEE-INSTRUCTIONS, Starting Wed at 0447, Until Discontinued, Routine ondansetron (ZOFRAN (PF)) injection 4 mg 4 mg, Slow IV Push, PRN, 1 dose, Startin g Wed12/15/19 at 0735, Until Discontinued, Routine, Nausea and Vomiting (N/V), PACU sennosides (SENOKOT) tablet 8.6 mg 8.6 mg, Oral, DAILY, First dose on Wed at 0900, Until Discontinued, Routine sodium citrate-citric acid (BICITRA) 500 -334 mg/5 mL solution 30 mL 30 mL, Oral, PRE-PROCEDURE ONCE, 1 dose, Starting Wed12/15/19 at 0317, Until Discontinued, Routine, Surgery/Procedure sodium citrate-citric acid (BICITRA) 500 -334 mg/5 mL solution 30 mL 30 mL, Oral, PRE-PROCEDURE ONCE, 1 dose, Starting Wed12/15/19 at 0317, Until Discontinued, Routine, Surgery/Procedure Medication Order MAR Action Action Date Dose Rate Site ceFAZolin in dextrose (iso-os) Given 12/16/2019 3:05 AM CDT 2 g (ANCEF) 2 gram/100 mL Piggyback 2 g 2 g (2,000 mg), IV Piggyback, Q8H ABX, 3 doses, First dose on Wed12/15/19 at 0530, Last dose on Wed12/15/19 at 2130, 100 mL, Reason for Anti-Infective: Empiric Therapy for Suspected Infection, Empiric Therapy Site: Pelvic, Duration of therapy: 72 hours Given 12/15/2019 9:23 PM CDT 2 g Given 12/15/2019 11:48 AM CDT 2 g methylergonovine (METHERGINE) Given 12/15/2019 7:07 PM CDT 0.2 mg Left Thigh injection 0.2 mg 0.2 mg, Intramuscular, Q6H, 3 doses, First dose on Wed12/15/19 at 0600, Last dose on Wed12/15/19 at 1800, Routine Given 12/15/2019 1:00 PM CDT 0.2 mg Left Thigh Given 12/15/2019 6:45 AM CDT 0.2 mg Left Thigh morpHINE 30 mg/30 mL (fixed dose) [employer] New Bag 12/15/2019 5:29 AM CDT 30 mg injection documented in this encounter Insurance Payer Benefit Plan / Subscriber ID Effective Phone Address [facility] xxxxxxxxx 2019-Prese [address] Medic aid HEALTH CHOICE - HEALTH CHOICE [place] [id number] 1 MANAGED MEDICAID [place], [place]ID [phone] documented as of this encounter
--- OUTSIDE RECORDS SUMMARY | 2020-02-06 21:09 | XMS REPORT | Summary of Care ---
:1990 Author Organization [facility] Address [address] [place] [address] Care Team Providers Name Role Phone Pcp, Does Not Have A Primary Care Provider Reason for Visit Reason Comments No Show (DNKA) Encounter Details Date Type Department Care Team Description [facility]2020 [facility] ALEXIS No Show (DNKA) [address] [phone] Allergies No Known Allergiesdocumented as of this [...] Treatment Date Type Specialty Care Team Description 01/04/2020 Telemedicine Visit OB Satellites [place], [facility] [address] [place] [phone] Health Maintenance Due Date Last Done Comments VARICELLA VACCINES (1 of 2 - 1991 2-dose childhood series) DTaP,Tdap,and Td Vaccines (1 - 2001 Tdap) PAP SMEAR 2011 INFLUENZA VACCINE (#1) 2019 PNEUMOCOCCAL 0-64 YEARS COMBINED Aged Out No longer eligible based on SERIES patient's age to complete this topic documented as of this encounter Results Not on filedocumented in this encounter Insurance Payer Benefit Plan / Subscriber ID Effective Phone Address [employer] [facility] xxxxxxxxx 2019-Natali [address] Medic aid HEALTH CHOICE - HEALTH CHOICE nt [id number] 1 MANAGED MEDICAID [place], [place] [phone] documented as of this encounter
--- OUTSIDE RECORDS SUMMARY | 2020-02-06 21:09 | XMS REPORT | Summary of Care ---
:1990 Author Organization [facility] - [facility] Address [address] [place] [id number] Care Team Providers Name Role Phone Pcp, Does Not Have A Primary Care Provider Reason for Visit Reason Comments Results Encounter Details Date Type Department Care Team Description 12/28/2019 Telephone [facility], Kip Sauceda MD Results [facility] [phone] [place], [place] [id number] [place] [phone] Allergies No Known Allergiesdocumented as of this encounter (statuses as of 01/04/2020) Medications Medication Sig Dispensed Refills Start Date [...] as of this encounter (statuses as of 01/04/2020) Active Problems Problem Noted Date Labor and [...] as of this encounter (statuses as of 01/04/2020) Immunizations Name Administration Dates Next Due Rho [...] Plan / Subscriber ID Effective Phone Address [facility] xxxxxxxxx 2019-Prese [address] Medic aid HEALTH CHOICE - HEALTH CHOICE nt [phone] 1 MANAGED MEDICAID [place], [place] [phone] documented as of this encounter
[2020-02-06] MEDS ORDERED: dexAMETHasone 4 MG/ML VIAL ONE (22:04)
--- NOTE | 2020-02-06 22:34 | EDPHYS ---
Physician Documentation [facility] Name: Sivakumar Campbell Age: 29 yrs Sex: Female : 1990 Arrival Date: 02/06/2020 Time: 21:11 Bed 20 Private MD: ED Physician Saran Montgomery HPI: 02/05 21:40 This 29 yrs old Black Female presents to ER via Ambulatory with complaints of Hives, jmm Swollen Throat. 21:40 The patient's rash thought to be caused by an unknown cause. The rash is located on the jmm body diffusely. Onset: The symptoms/episode began/occurred gradually, 1.5 month(s) ago. Associated signs and symptoms: Pertinent negatives: difficulty breathing, vomiting, wheezing. This is a 29 year old female with no chronic medical conditions that presents to the the ED with complaints of hives which has been ongoing since late december of this year. Patient is unsure of the cause. No new detergents or foods. Patient states no having a sensation of swelling to her throat. Denies vomiting or abdominal pain. Patient is able to take benadryl of relief of symptoms. . [employer]: 22:00 lmp unknown mg2 Historical: - Allergies: 21:23 No Known Allergies; ll1 - PSHx: 21:23 D \T\ C; ll1 - Immunization history:: Flu vaccine status is unknown. - Social history:: Smoking status: Patient reports the use of cigarette tobacco products, smokes one-half pack cigarettes per day, Patient/guardian denies using alcohol, street drugs. ROS: 21:40 Constitutional: Negative for fever, chills, and weight loss, Cardiovascular: Negative jmm for chest pain, palpitations, and edema, Respiratory: Negative for shortness of breath, cough, wheezing, and pleuritic chest pain, Abdomen/GI: Negative for abdominal pain, nausea, vomiting, diarrhea, and constipation. 21:40 ENT: Positive for sore throat. 21:40 Abdomen/GI: Negative for abdominal pain, nausea and vomiting, diarrhea. 21:40 Skin: Positive for rash. 21:40 All other systems are negative. Exam: 21:40 Constitutional: This is a well developed, well nourished patient who is awake, alert, jmm and in no acute distress. Head/Face: atraumatic. Eyes: EOMI, no conjunctival erythema appreciated 21:40 Neck: Trachea midline, Supple Chest/axilla: Normal chest wall appearance and motion. Cardiovascular: Regular rate and rhythm. No edema appreciated Respiratory: Normal respirations, no respiratory distress appreciated Abdomen/GI: Non distended, soft Back: Normal ROM 21:40 ENT: no pharyngeal edema appreciated. 21:40 Skin: urticaria noted to the upper arms and back. 21:40 Neuro: Orientation: is normal, Mentation: is normal, Memory: is normal. 21:40 Psych: Behavior/mood is pleasant, cooperative. Vital Signs: 21:19 BP 131 / 90; Pulse 87; Resp 17; Temp 98.2; Pulse Ox 99% ; Pain 4/10; ll1 22:40 BP 122 / 78; Pulse 85; Resp 18; Temp 98; Pulse Ox 100% on R/A; mg2 MDM: 21:40 Patient medically screened. [facility] 22:33 Data reviewed: vital signs, nurses notes. Counseling: I had a detailed discussion with gabrielle the patient and/or guardian regarding: the historical points, exam findings, and any diagnostic results supporting the discharge/admit diagnosis, the need for outpatient follow up, to return to the emergency department if symptoms worsen or persist or if there are any questions or concerns that arise at home. 22:33 ED course: Patient is alert and non toxic in appearance in the ED. No pharyngeal edema jm is appreciated. Patient prescribed EpiPen and given strict return precautions. Patient understood and agrees with the plan of care. . Administered Medications: 22:03 Drug: Decadron 10 mg Route: IM; Site: right gluteus; mg2 22:30 Follow up: Response: No adverse reaction; Marked relief of symptoms mg2 Disposition: 02/06 02:32 Co-signature as Attending Physician, Saran Montgomery MD I agree with the assessment and tw4 plan of care. Disposition: 02/06/20 22:34 Discharged to Home. Impression: Urticaria, unspecified. - Condition is Stable. - Discharge Instructions: Hives. - Prescriptions for Elimite 5 % Topical Cream - apply 1 application by TOPICAL route one time Wash after 12 hours.; 60 gram. Hydroxyzine HCl 25 mg Oral Tablet - take 1 tablet by ORAL route every 6 hours As needed; 30 tablet. Prednisone 20 mg Oral Tablet - take 3 tablet by ORAL route once daily for 5 days; 15 tablet. EpiPen 0.3 mg Injection auto- injector - inject 1 pen by INTRAMUSCULAR route as directed Inject into the outer portion of the thigh, through clothing if necessary. Indicated in the emergency treatment of allergic reactions; 1 unit. - Medication Reconciliation Form, Thank You Letter, Antibiotic Education, Prescription Opioid Use form. - Follow up: Private Physician; When: 2 - 3 days; Reason: Recheck today's complaints, Continuance of care, Re-evaluation by your physician. Signatures: Miguel Ángel Escalera PA PA jmm Wadley, Terrence, MD MD tw4 Jaime Hair RN RN mg2 Bhaskar Mccracken RN RN ll1 Corrections: (The following items were deleted from the chart) 02/05 22:49 22:34 02/06/2020 22:34 Discharged to Home. Impression: Urticaria, unspecified. mg2 Condition is Stable. Forms are Medication Reconciliation Form, Thank You Letter, Antibiotic Education, Prescription Opioid Use. Follow up: Private Physician; When: 2 - 3 days; Reason: Recheck today's complaints, Continuance of care, Re-evaluation by your physician. gabrielle
--- NOTE | 2020-02-06 22:34 | ER ---
Nurse's Notes [facility] Name: Sivakumar Campbell Age: 29 yrs Sex: Female : 1990 Arrival Date: 02/06/2020 Time: 21:11 Bed 20 Private MD: Diagnosis: Urticaria, unspecified Presentation: 02/05 21:19 Chief complaint: Patient states: Random rashes/hives to body intermittently since December. States she has had 3 episodes of her throat swelling since December 28. No known specific allergen. No SOB or obvious airway compromise at this time. Coronavirus screen: Proceed with normal triage. Patient denies a cough. Patient reports shortness of breath or difficulty breathing. Patient denies measured and/or subjective temperature greater than 100.4F prior to today's visit. Patient denies travel on a cruise ship or to a country the [facility] currently lists as an affected area. Patient denies contact with known and/or suspected case of COVID-19. Ebola Screen: Patient denies travel to an Ebola-affected area in the 21 days before illness onset. Onset: The symptoms/episode began/occurred 3 episodes of throat swelling since December 28.. Anaphylaxis evaluation, the patient reports or I have noted the following symptoms which indicate a significant risk of anaphylaxis: lump in the throat which may suggest laryngeal edema. Initial Sepsis Screen: Does the patient meet any 2 criteria? No. Patient's initial sepsis screen is negative. Does the patient have a suspected source of infection? No. Patient's initial sepsis screen is negative. Risk Assessment: Do you want to hurt yourself or someone else? Patient reports no desire to harm self or others. Onset of symptoms was December 29, 2019. 21:19 Method Of Arrival: Ambulatory 1 21:19 Acuity: LAURA 4 ll1 Triage Assessment: 22:00 General: Appears in no apparent distress. comfortable, Behavior is calm, cooperative. mg2 [employer]: 22:00 lmp unknown mg2 Historical: - Allergies: 21:23 No Known Allergies; ll1 - PSHx: 21:23 D \T\ C; ll1 - Immunization history:: Flu vaccine status is unknown. - Social history:: Smoking status: Patient reports the use of cigarette tobacco products, smokes one-half pack cigarettes per day, Patient/guardian denies using alcohol, street drugs. Screenin:00 Abuse screen: Denies threats or abuse. Denies injuries from another. mg2 22:00 Nutritional screening: No deficits noted. Tuberculosis screening: No symptoms or risk mg2 factors identified. Fall Risk No IV (0 pts). Assessment: 22:00 General: Appears in no apparent distress. comfortable, Behavior is calm, cooperative. mg2 Pain: Denies pain. Neuro: Level of Consciousness is awake, alert, obeys commands, Oriented to person, place, time, situation. 22:00 Cardiovascular: Capillary refill < 3 seconds Patient's skin is warm and dry. mg2 Respiratory: Airway is patent Respiratory effort is even, unlabored, Respiratory pattern is regular, symmetrical, Breath sounds are clear bilaterally. GI: No signs and/or symptoms were reported involving the gastrointestinal system. : No signs and/or symptoms were reported regarding the genitourinary system. EENT: No signs and/or symptoms were reported regarding the EENT system. Derm: Rash noted that is itchy, urticaria, on left leg. Musculoskeletal: Circulation, motion, and sensation intact. Capillary refill < 3 seconds. Vital Signs: 21:19 BP 131 / 90; Pulse 87; Resp 17; Temp 98.2; Pulse Ox 99% ; Pain 4/10; ll1 22:40 BP 122 / 78; Pulse 85; Resp 18; Temp 98; Pulse Ox 100% on R/A; mg2 ED Course: 21:11 Patient arrived in ED. cl3 21:15 Miguel Ángel Escalera PA is PHCP. [facility] 21:15 Saran Montgomery MD is Attending Physician. [facility] 21:22 Triage completed. ll1 21:23 Arm band placed on Patient placed in an exam room, on a stretcher. ll1 21:32 Jaime Hair, JAVIER is Primary Nurse. mg2 22:00 Patient has correct armband on for positive identification. mg2 22:00 No provider procedures requiring assistance completed. Patient did not have IV access mg2 during this emergency room visit. Administered Medications: 22:03 Drug: Decadron 10 mg Route: IM; Site: right gluteus; mg2 22:30 Follow up: Response: No adverse reaction; Marked relief of symptoms mg2 Outcome: 22:34 Discharge ordered by . [facility] 22:48 Discharged to home ambulatory. mg2 22:48 Condition: stable 22:48 Discharge instructions given to patient, Instructed on discharge instructions, follow up and referral plans. medication usage, Demonstrated understanding of instructions, follow-up care, medications, Prescriptions given X 4. 22:49 Patient left the ED. mg2 Signatures: Miguel Ángel Escalera PA PA jmm Gardose, Michele, JAVIER RN mg2 Carolann Mccracken cl3 Bhaskar Mccracken RN RN ll1 Corrections: (The following items were deleted from the chart) 21:24 21:19 Chief complaint: Patient states: Random rashes/hives to body intermittently since ll1 December 28. States she has had 3 episodes of her throat swelling since December 28. No known specific allergen known. ll1
[2020-02-06 23:53] VITALS: BP 131/90; TEMP 98.2; O2SAT 99
== END 2020-02-06 22:49 | disposition home or self-care (01) ==
LOC: ER 21:05
DX: L50.9 Urticaria, unspecified (principal); F17.210 Nicotine dependence, cigarettes, uncomplicated

== ENCOUNTER 2020-03-28 09:46 | Emergency (ER) | payer OTHER ==
[2020-03-28] MEDS ORDERED: predniSONE 20 MG TAB ONE (10:27)
[2020-03-28] MEDS ORDERED: FAMOTIDINE 20 MG TAB ONE (10:28)
--- NOTE | 2020-03-28 11:54 | EDPHYS ---
Physician Documentation [facility] Name: Sivakumar Campbell Age: 29 yrs Sex: Female : 1990 Arrival Date: 03/28/2020 Time: 09:50 Bed 17 Private MD: ED Physician Janes Cuellar HPI: 03/28 11:05 This 29 yrs old Black Female presents to ER via Ambulatory with complaints of Allergic mh7 Reaction. 11:05 The patient presents with itching, rash, that is diffuse. mh7 11:05 The patient presents with sensation of something in throat. Onset: The symptoms/episode mh7 began/occurred this morning. Associated signs and symptoms: Pertinent positives: hives, rash, Pertinent negatives: abdominal pain, Altered mental status chest pain, dysphagia, fever, headache, Light headed nausea, shortness of breath, swelling, Syncope vomiting. Possible causes: The patient has no known obvious cause for the symptoms. At home the patient or guardian has treated the symptoms with Benadryl. Severity of symptoms: At their worst the symptoms were moderate this morning, in the emergency department the symptoms have improved moderately. The patient has experienced similar episodes in the past, multiple times. Historical: - Allergies: 10:04 No Known Allergies; ss - Home Meds: 10:04 None [Active]; ss - PMHx: 10:04 None; ss - PSHx: 10:04 D \T\ C; ss - Immunization history:: Adult Immunizations up to date. - Social history:: Smoking status: Patient denies any tobacco usage or history of. ROS: 11:05 Constitutional: Negative for fever, chills, and weight loss, Eyes: Negative for injury, mh7 pain, redness, and discharge, Neck: Negative for injury, pain, and swelling, Cardiovascular: Negative for chest pain, palpitations, and edema, Respiratory: Negative for shortness of breath, cough, wheezing, and pleuritic chest pain, Abdomen/GI: Negative for abdominal pain, nausea, vomiting, diarrhea, and constipation, Back: Negative for injury and pain, : Negative for injury, bleeding, discharge, and swelling, MS/Extremity: Negative for injury and deformity, Neuro: Negative for headache, weakness, numbness, tingling, and seizure, Psych: Negative for depression, anxiety, suicide ideation, homicidal ideation, and hallucinations, Endocrine: Negative for neck swelling, polydipsia, polyuria, polyphagia, and marked weight changes, Hematologic/Lymphatic: Negative for swollen nodes, abnormal bleeding, and unusual bruising. Exam: 11:05 Constitutional: This is a well developed, well nourished patient who is awake, alert, mh7 and in no acute distress. Head/Face: Normocephalic, atraumatic. Eyes: Pupils equal round and reactive to light, extra-ocular motions intact. Lids and lashes normal. Conjunctiva and sclera are non-icteric and not injected. Cornea within normal limits. Periorbital areas with no swelling, redness, or edema. ENT: Nares patent. No nasal discharge, no septal abnormalities noted. Tympanic membranes are normal and external auditory canals are clear. Oropharynx with no redness, swelling, or masses, exudates, or evidence of obstruction, uvula midline. Mucous membranes moist. Neck: Trachea midline, no thyromegaly or masses palpated, and no cervical lymphadenopathy. Supple, full range of motion without nuchal rigidity, or vertebral point tenderness. No Meningismus. Chest/axilla: Normal chest wall appearance and motion. Nontender with no deformity. No lesions are appreciated. Cardiovascular: Regular rate and rhythm with a normal S1 and S2. No gallops, murmurs, or rubs. Normal PMI, no JVD. No pulse deficits. Respiratory: Lungs have equal breath sounds bilaterally, clear to auscultation and percussion. No rales, rhonchi or wheezes noted. No increased work of breathing, no retractions or nasal flaring. Abdomen/GI: Soft, non-tender, with normal bowel sounds. No distension or tympany. No guarding or rebound. No evidence of tenderness throughout. Back: No spinal tenderness. No costovertebral tenderness. Full range of motion. 11:05 MS/ Extremity: Pulses equal, no cyanosis. Neurovascular intact. Full, normal range of motion. Neuro: Awake and alert, GCS 15, oriented to person, place, time, and situation. Cranial nerves II-XII grossly intact. Motor strength 5/5 in all extremities. Sensory grossly intact. Cerebellar exam normal. Normal gait. Psych: Awake, alert, with orientation to person, place and time. Behavior, mood, and affect are within normal limits. 11:05 Skin: urticaria, and is diffusely located. Vital Signs: 09:58 BP 116 / 76; Pulse 114; Resp 15; Temp 98.5(TE); Pulse Ox 100% on R/A; Weight 68.04 kg; ss Height 5 ft. 5 in. (165.10 cm); Pain 0/10; 11:48 BP 119 / 74; Pulse 89; Resp 18; Pulse Ox 96% ; ah 09:58 Body Mass Index 24.96 (68.04 kg, 165.10 cm) ss MDM: 10:09 Patient medically screened. mh7 11:44 Differential diagnosis: anaphylaxis, angioedema, bronchospasm, non IgE mediated drug mh7 reaction urticaria. Data reviewed: vital signs, nurses notes. Counseling: I had a detailed discussion with the patient and/or guardian regarding: the historical points, exam findings, and any diagnostic results supporting the discharge/admit diagnosis, lab results, radiology results, the need for outpatient follow up, for definitive care, an allergy/equipment application specialist, a attendant child activity, to return to the emergency department if symptoms worsen or persist or if there are any questions or concerns that arise at home. Response to treatment: the patient's symptoms have resolved after treatment, the patient's blood pressure is in an acceptable range, mental status has returned to baseline, the patient no longer shows bradycardia, the patient is not short of breath, the patient is not tachycardic, the patient's pain is gone, the patient's temperature has normalized. Administered Medications: 10:24 Drug: predniSONE 60 mg Route: PO; 11:30 Follow up: Response: No adverse reaction 10:24 Drug: Pepcid 20 mg Route: PO; 11:30 Follow up: Response: No adverse reaction Disposition: 03/28/20 11:53 Discharged to Home. Impression: Urticaria, unspecified. - Condition is Stable. - Discharge Instructions: Hives, [id number], Allergies, [id number]. - Prescriptions for Benadryl 25 mg Oral Capsule - take 2 capsule by ORAL route every 6 hours As needed; 30 tablet. Pepcid 20 mg Oral Tablet - take 1 tablet by ORAL route every 12 hours for 5 days; 10 tablet. Prednisone 20 mg Oral Tablet - take 2 tablet by ORAL route once daily for 5 days; 10 tablet. - Medication Reconciliation Form, Thank You Letter, Antibiotic Education, Prescription Opioid Use form. - Follow up: Private Physician; When: 1 - 2 days; Reason: Worsening of condition, Recheck today's complaints, Re-evaluation by your physician. Follow up: Telma Agudelo MD; When: 1 - 2 days; Reason: Worsening of condition, Recheck today's complaints. Follow up: Aron Rodriguez MD; When: 1 - 2 days; Reason: Worsening of condition, Recheck today's complaints. - Problem is an ongoing problem. - Symptoms have improved. Signatures: Bailey Aldridge RN RN Yari Lockwood RN RN Janes Cuellar MD MD mh7 Corrections: (The following items were deleted from the chart) 12:20 11:53 03/28/2020 11:53 Discharged to Home. Impression: Urticaria, unspecified. Condition is Stable. Forms are Medication Reconciliation Form, Thank You Letter, Antibiotic Education, Prescription Opioid Use. Follow up: Private Physician; When: 1 - 2 days; Reason: Worsening of condition, Recheck today's complaints, Re-evaluation by your physician. Follow up: Telma Agudelo; When: 1 - 2 days; Reason: Worsening of condition, Recheck today's complaints. Follow up: Aron Rodriguez; When: 1 - 2 days; Reason: Worsening of condition, Recheck today's complaints. Problem is an ongoing problem. Symptoms have improved. mh7
--- NOTE | 2020-03-28 11:54 | ER ---
Nurse's Notes [facility] Name: Sivakumar Campbell Age: 29 yrs Sex: Female : 1990 Arrival Date: 03/28/2020 Time: 09:50 Bed 17 Private MD: Diagnosis: Urticaria, unspecified Presentation: 03/28 09:58 Chief complaint: Patient states: Hives since December after a D\T\C procedure. Pt reports ss about an hour ago she started feeling as if she has something in her throat. Coronavirus screen: Proceed with normal triage. Patient denies a cough. Patient denies shortness of breath or difficulty breathing. Patient denies measured and/or subjective temperature greater than 100.4F prior to today's visit. Patient denies travel on a cruise ship or to a country the [facility] currently lists as an affected area. Patient denies contact with known and/or suspected case of COVID-19. Ebola Screen: Patient denies exposure to infectious person. Patient denies travel to an Ebola-affected area in the 21 days before illness onset. Onset: The symptoms/episode began/occurred 3 month(s) ago. Anaphylaxis evaluation, SEE TRIAGE NOTE. Initial Sepsis Screen: Does the patient meet any 2 criteria? No. Patient's initial sepsis screen is negative. Does the patient have a suspected source of infection? No. Patient's initial sepsis screen is negative. Risk Assessment: Do you want to hurt yourself or someone else? Patient reports no desire to harm self or others. 09:58 Method Of Arrival: Ambulatory 09:58 Acuity: LAURA 3 09:58 Onset of symptoms is unknown. Historical: - Allergies: 10:04 No Known Allergies; ss - Home Meds: 10:04 None [Active]; ss - PMHx: 10:04 None; ss - PSHx: 10:04 D \T\ C; ss - Immunization history:: Adult Immunizations up to date. - Social history:: Smoking status: Patient denies any tobacco usage or history of. Screenin:30 Abuse screen: Denies threats or abuse. Nutritional screening: No deficits noted. Tuberculosis screening: No symptoms or risk factors identified. Fall Risk None identified. Assessment: 10:15 General: Appears uncomfortable, Behavior is calm, cooperative, appropriate for age. Pain: Denies pain. Neuro: Level of Consciousness is awake, alert, Oriented to person, place, time, situation. Cardiovascular: Capillary refill < 3 seconds Patient's skin is warm and dry. Rhythm is sinus tachycardia. Respiratory: Airway is patent Respiratory effort is even, unlabored, Respiratory pattern is regular, symmetrical, Breath sounds are coarse bilaterally. GI:. Derm: Rash noted that is itchy, red, raised, on arms and legs Reports. 11:15 Reassessment: Patient and/or family updated on plan of care and expected duration. Pain ah level reassessed. Patient is alert, oriented x 3, equal unlabored respirations, skin warm/dry/pink. Patient states feeling better. Vital Signs: 09:58 BP 116 / 76; Pulse 114; Resp 15; Temp 98.5(TE); Pulse Ox 100% on R/A; Weight 68.04 kg; ss Height 5 ft. 5 in. (165.10 cm); Pain 0/10; 11:48 BP 119 / 74; Pulse 89; Resp 18; Pulse Ox 96% ; ah 09:58 Body Mass Index 24.96 (68.04 kg, 165.10 cm) ED Course: 09:50 Patient arrived in ED. fj1 10:00 Janes Cuellar MD is Attending Physician. [facility] 10:03 Triage completed. 10:04 Arm band placed on right wrist. 10:17 Yari Lockwood, RN is Primary Nurse. 11:30 No provider procedures requiring assistance completed. Patient did not have IV access during this emergency room visit. 11:53 Telma Agudelo MD is Referral Physician. [facility] 11:53 Aron Rodriguez MD is Referral Physician. [facility] 12:20 Patient has correct armband on for positive identification. Bed in low position. Call light in reach. Side rails up X 1. Pulse ox on. NIBP on. Administered Medications: 10:24 Drug: predniSONE 60 mg Route: PO; 11:30 Follow up: Response: No adverse reaction 10:24 Drug: Pepcid 20 mg Route: PO; 11:30 Follow up: Response: No adverse reaction Outcome: 11:53 Discharge ordered by . [facility] 12:00 Discharged to home ambulatory. 12:00 Condition: good 12:00 Discharge instructions given to patient, Instructed on discharge instructions, follow up and referral plans. medication usage, Demonstrated understanding of instructions, follow-up care, medications, Prescriptions given X 3. 12:20 Patient left the ED. Signatures: Bailey Aldridge, RN RN Chester Sims fj1 Yari Lockwood RN RN Janes Ye MD MD mh7
[2020-03-28 12:26] VITALS: TEMP 98.5
[2020-03-28 12:27] VITALS: BP 119/74; O2SAT 96
== END 2020-03-28 12:20 | disposition home or self-care (01) ==
LOC: ER 09:46
DX: L50.9 Urticaria, unspecified (principal)
CPT/HCPCS: 99284; J7512

== ENCOUNTER 2021-10-01 18:15 | Emergency (ER) | payer OTHER, SELFPAY ==
--- OUTSIDE RECORDS SUMMARY | 2021-10-01 18:18 | XMS REPORT | Continuity of Care Document ---
:1990 Author Organization [facility] t Address [address] [place] [address] Care Team Providers Name Role Phone PCP, DOES NOT HAVE A Primary Care Physician Unavailable MARY BRIONES Attending Clinician Unavailable Mary Briones MD Attending Clinician Doctor Unassigned, Brianne Attending Clinician Unavailable ELISEO Attending Clinician Unavailable Komal VINES Attending Clinician Unavailable Merari WINTERS Attending Clinician Unavailable EDWARD HERNANDEZ Attending Clinician Unavailable Jag VALVERDE Attending Clinician Unavailable MARY BRIONSE Admitting Clinician Unavailable Nasima SOLO Admitting Clinician Unavailable Payers Payer Name Policy Type Policy Number Effective Date Expiration Date Formerly [facility] [id number] 2019 [facility] MEDICAID 00:00:00 [facility] [id number] 2019 00:00:00 Problems Condition Condition Condition Status Onset Resolution Last Treating Co mments Source Name Details Category Date Date Treatment Clinician Date Presence Presence Disease Active Unive rs of 52 mg of 52 mg 4-22 ity of [place] t[place]rele[place] trel-relea 00 Me dical [facility] Branch intrauteri intrauteri ne device ne device (IUD) (IUD) Allergies, Adverse Reactions, Alerts Allergy Allergy Status Severity Reaction(s) Onset Inactive Treating Comm ents Source Name Type Date Date Clinician NO KNOWN Drug Active Univers ALLERGIE Class ity of S [facility] Social History Social Habit Start Date Stop Date Quantity Comments Source Exposure to Not sure [facility]-CoV2 [place] Medical (event) Branch Alcohol intake 2021-07-28 2021-07-28 Current University of 00:00:00 00:00:00 non-drinker of [facility] alcohol Branch (finding) Tobacco use and 2020-12-02 2020-12-02 Never used Universit y of exposure 00:00:00 00:00:00 [facility] History SDOH 2020-12-02 2020-12-02 4 University o f Financial 00:00:00 00:00:00 [facility] Tobacco Comment 2020-12-02 2020-12-02 Years ago Universit y of 00:00:00 00:00:00 [facility] Sex Assigned At [birth year] Universit y of 00:00:00 00:00:00 [facility] Smoking Status Start Date Stop Date Source Former smoker 2020-12-02 00:00:00 2020-12-02 00:00:00 Universi ty of [facility] Medications Ordered Filled Start Stop Current Ordering Indication Dosage Frequency Signature Comments Components Source Medication Medication Date Date Medication? Clinician (SIG) Name Name levonorgest 2020-10- No [id number] 1{devic Univers reL 0-25 10-25 e} ity of (MIRENA) 17:45: 16:34 [place] IUD 1 00 :00 Workers Compensation Specialist [place] levonorgest 2020-10- No [id number] 1{devic 1 Device, Univers reL 0-25 10-25 e} Intrauteri ity of (MIRENA) 17:45: 16:34 ne, ONCE, [place] as IUD 1 00 :00 1 dose, On Workers [employer] Specialist [place] Branch 07/28/21 at 1245, Routine levonorgest 2020-10- No [id number] 1{devic Univers reL 0-25 10-25 e} ity of (MIRENA) 17:45: 16:34 [place] IUD 1 00 :00 Workers [employer] Special[employer] Branch levonorgest 2020-10- No [id number] 1{devic 1 Device, Univers reL 0-25 10-25 e} Intrauteri ity of (MIRENA) 17:45: 16:34 ne, ONCE, [place] as IUD 1 00 :00 1 dose, On Workers Compensation Specialist [facility] Branch 07/28/21 at 1245, Routine No known 2020-10 No Univers medications 0-25 ity of 11:31: [place] 10 Medical Branch 2020- No [id number] 1{tbl} Take 1 Univers vitamin 3-02 10-25 tablet by ity of w/FA tablet 00:00[place] daily. Medical [place] ferrous 2020- No [id number] 325mg Take 1 U nivers sulfate 325 3-02 10-25 tablet by it y of mg (65 mg 00:00: 00:[place] iron[place] 00 :00 (two) Medical tablet times Branch daily. ibuprofen 2020- No [id number] 600mg Take 1 Univers 600 mg 3-02 10-25 tablet by ity of tablet 00:00: 00:00 mouth [place] 00 :00 every 6 Medical (six) Branch hours as needed (Pain). Take with food or milk. 2020- No [id number] 1{tbl} Take 1 Univers vitamin 3-02 10-25 tablet by ity of w/FA tablet 00:00[place] daily. Medical Branch ferrous 2020- No [id number] 325mg Take 1 U nivers sulfate 325 3-02 10-25 tablet by it y of mg (65 mg 00:00: 00:[place] iron[place] 00 :00 (two) Medical tablet times Branch daily. ibuprofen 2020- No [id number] 600mg Take 1 Univers 600 mg 3-02 10-25 tablet by ity of tablet 00:00: 00:00 mouth [place] 00 :00 every 6 Medical (six) Branch hours as needed (Pain). Take with food or milk. Immunizations Ordered Filled Immunization Date Status Comments [facility] e Immunization Name Name [facility] 2020-10-07 Completed University 00:00:00 [facility] TD 2020-10-07 Completed University 00:00:00 [facility] TDAP 2020-10-07 Completed University 00:00:00 [facility] Vital Signs Vital Name Observation Time Observation Value Comments Source Systolic blood 2021-07-28 15:29:00 126 mm[Hg] Univer sity of pressure [facility] Diastolic blood 2021-07-28 15:29:00 82 mm[Hg] Unive rsity of [facility] Body weight 2021-07-28 15:28:00 73.936 kg Universi ty [facility] BMI 2021-07-28 15:28:00 27[facility]12 [facility] Heart rate 2021-07-28 15:28:00 82 /min [facility] Body temperature 2021-07-28 15:28:00 37.22 Kayla [facility] ersity [facility] Respiratory rate 2021-07-28 15:28:00 18 /min [facility] Body height 2021-07-28 15:28:00 165.1 cm [facility] ty [facility] Procedures Procedure Date / Time Performed Performing Clinician Sour e DISCLOSURE AND 2021-07-28 05:01:00 Doctor Unassigned, No [facility] AND Name Medical Bra [facility] SURGICAL PROCEDURES Encounters Start End Encounter Admission Attending Care Care Encounter Source Date/Time Date/Time Type Type Clinicians Facility Department ID 2021-08-03 Outpatient P [email or web address] TERRI [id number] Univers 00:25:23 ity [facility] 2021-07-31 Outpatient P [facility] [[email or web address] TERRI [id number] Univers 14:09:25 [facility] [place] [facility] 2021-08-25 2021-08-25 Outpatient R NAA BRIONES [facility] [id number] Univers 10:30:00 10:30:00 [id number] ity [facility] 2021-08-25 2021-08-25 Outpatient R NAA BRIONES [facility] [id number] Univers 10:30:00 10:30:00 ity [facility] 2021-07-28 2021-07-28 Office Naa Briones [facility] [[email or web address]] [id number] Univers 10:00:13 11:01:13 Visit Mary Abbott [id number] i ty of [place] [id number] Sandrine bernal Professio [phone] Ma dical [address] 2021-07-28 2021-07-28 Outpatient NAA RUBI [facility] [id number] Univers 09:45:00 09:45:00 [id number] ity [facility] 2021-07-28 2021-07-28 Outpatient NAA RUBI [facility] [id number] Univers 09:45:00 09:45:00 ity [facility] 2021-07-28 2021-07-28 Orders Doctor NELSON [id number] Univers 00:00:00 00:00:00 Only Unassigned, CALIN [id number] ity [facility] [id number] Jordi as [id number] [address] 2021-07-09 2021-07-09 Outpatient Merari GOMES [facility] [id number] Univers 10:00:00 10:00:00 ABRIL [id number] [facility] 2021-07-09 2021-07-09 Outpatient Merari GOMES [facility] [id number] Univers 10:00:00 10:00:00 ABRIL [facility] 2021-07-03 2021-07-03 Outpatient Merari GOMES [facility] [id number] Univers 15:30:00 15:30:00 ABRIL [id number] [facility] 2021-07-03 2021-07-03 Outpatient Merari GOMES [facility] [id number] Univers 00:00:00 00:00:00 ABRIL [facility] 2021-06-23 2021-06-23 Outpatient Merari GOMES [facility] [id number] Univers 00:00:00 00:00:00 ABRIL [id number] [facility] 2021-06-23 2021-06-23 Outpatient Merari GOMES [facility] [id number] Univers 00:00:00 00:00:00 ABRIL [facility] 2021-06-19 2021-06-19 Outpatient Merari GOMES [facility] [id number] Univers 10:45:00 10:45:00 ABRIL [id number] [facility] 2021-06-19 2021-06-19 Outpatient Merari GOMES [facility] [id number] Univers 10:45:00 10:45:00 ABRIL [facility] 2021-06-16 2021-06-16 Outpatient R ELISEO [facility] [id number] Univers 09:00:00 09:00:00 ABRIL [id number] ity [facility] 2021-06-16 2021-06-16 Outpatient R ELISEO [facility] [id number] Univers 09:00:00 09:00:00 ABRIL [facility] 2021-02-20 2021-02-20 Outpatient R NAA BRIONES [facility] [id number] Univers 15:30:00 15:30:00 [id number] [facility] 2021-02-20 2021-02-20 Outpatient R NAA BRIONES [facility] [id number] Univers 15:30:00 15:30:00 [facility] [place] [facility] 2021-01-23 2021-01-23 Outpatient R NAA BRIONES [facility] [id number] Univers 10:45:00 10:45:00 [id number] [facility] [place] [facility] 2021-01-23 2021-01-23 Outpatient R NAA BRIONES [facility] [id number] Univers 10:45:00 10:45:00 [facility] [place] [facility] 2021-01-22 2021-01-22 Outpatient R NAA BRIONES [facility] [id number] Univers 11:00:00 11:00:00 [id number] [facility] 2021-01-22 2021-01-22 Outpatient R BRIONESNAA [facility] [id number] Univers 11:00:00 11:00:00 ity [facility] 2021-01-16 2021-01-16 Outpatient R BRIONESNAA [facility] [id number] Univers 10:00:00 10:00:00 [id number] [facility] 2021-01-16 2021-01-16 Outpatient R ANALINAA [facility] [id number] Univers 10:00:00 10:00:00 ity [facility] 2021-01-07 2021-01-07 Outpatient R ELISEO [facility] [id number] Univers 11:15:00 11:15:00 ABRIL [id number] [facility] [place] [facility] 2021-01-07 2021-01-07 Outpatient R ELISEO [facility] [id number] Univers 11:15:00 11:15:00 ABRIL [facility] 2021-01-01 2021-01-01 Outpatient R ELISEO [facility] [id number] Univers 13:15:00 13:15:00 ABRIL [facility] 2021-01-01 2021-01-01 Outpatient R ELISEO [facility] [id number] Univers 11:15:00 11:15:00 ABRIL [id number] [facility] 2021-01-01 2021-01-01 Outpatient R ELISEO [facility] [id number] Univers 11:15:00 11:15:00 ABRIL [facility] 2020-12-23 2020-12-23 Outpatient R ELISEO [facility] [id number] Univers 11:30:00 11:30:00 ABRIL [id number] [facility] [place] [facility] 2020-12-23 2020-12-23 Outpatient R ELISEO [facility] [id number] Univers 11:30:00 11:30:00 ABRIL [facility] 2020-11-29 2020-11-29 Outpatient R [facility] [id number] Univers 10:15:00 10:15:00 [id number] [facility] [place] [facility] 2020-11-29 2020-11-29 Outpatient R [facility] [id number] Univers 10:15:00 10:15:00 [facility] [place] [facility] 2020-11-25 2020-11-25 Outpatient R NAA BRIONES [facility] [id number] Univers 08:30:00 08:30:00 [id number] [facility] [place] [facility] 2020-11-25 2020-11-25 Outpatient R NAA BRIONES [facility] [id number] Univers 08:30:00 08:30:00 ity [facility] 2020-11-20 2020-11-20 Outpatient R NAA BRIONES [facility] [id number] Univers 16:00:00 16:00:00 [id number] ity [facility] 2020-11-20 2020-11-20 Outpatient R [facility] [id number] Univers 15:00:00 15:00:00 ity [facility] 2020-11-12 2020-11-12 Outpatient R ELISEO [facility] [id number] Univers 11:15:00 11:15:00 ABRIL [id number] ity [facility] 2020-11-07 2020-11-07 Outpatient R ELISEO [facility] [id number] Univers 13:30:00 13:30:00 ABRIL [facility] 2020-11-07 2020-11-07 Outpatient Merari BRIONES NAA [facility] [id number] Univers 13:00:00 13:00:00 [id number] [facility] [place] [facility] 2020-11-07 2020-11-07 Outpatient Merari BRIONES [facility] [id number] Univers 13:00:00 13:00:00 ity [facility] 2020-10-23 2020-10-23 Outpatient ELISEO [facility] [id number] Univers 11:15:00 11:15:00 ABRIL [id number] [facility] [place] [facility] 2020-10-23 2020-10-23 Outpatient R ELISEO [facility] [id number] Univers 11:15:00 11:15:00 ABRIL [facility] 2020-10-11 2020-10-11 Outpatient R [facility] [id number] Univers 15:00:00 15:00:00 [id number] ity [facility] 2020-10-11 2020-10-11 Outpatient R [facility] [id number] Univers 15:00:00 15:00:00 ity [facility] 2020-10-07 2020-10-07 Outpatient R ANALI [facility] [id number] Univers 09:30:00 09:30:00 [id number] ity [facility] 2020-10-07 2020-10-07 Outpatient R ANALI [facility] [id number] Univers 09:30:00 09:30:00 ity of [facility] 2020-09-30 2020-09-30 Outpatient R NAA BRIONES [facility] [id number] Univers 15:45:00 15:45:00 [id number] ity of [facility] 2020-09-30 2020-09-30 Outpatient R NAA BRIONES [facility] [id number] Univers 15:45:00 15:45:00 ity of [facility] 2020-09-16 2020-09-16 Outpatient R NAA BRIONES [facility] [id number] Univers 10:30:00 10:30:00 [id number] ity [facility] 2020-09-16 2020-09-16 Outpatient R ANALI NAA [facility] [id number] Univers 10:30:00 10:30:00 ity [facility] 2020-08-16 2020-08-16 Outpatient R JASMYN [facility] [id number] Univers 08:00:00 08:00:00 FERNANDO [id number] [facility] [place] [facility] 2020-08-16 2020-08-16 Outpatient P JASMYN [facility] [id number] Univers 08:00:00 08:00:00 FERNANDO [facility] 2020-08-15 2020-08-15 Outpatient R ELISEO [facility] [id number] Univers 11:30:00 11:30:00 ABRIL [id number] [facility] [place] [facility] 2020-08-15 2020-08-15 [facility] [id number] Univers 11:30:00 11:30:00 ABRIL ity [facility] 2020-08-09 2020-08-09 Outpatient [facility] [id number] Univers 09:30:00 09:30:00 ity [facility] 2020-08-07 2020-08-07 Outpatient R [facility] [id number] Univers 09:00:00 09:00:00 ity [facility] 2020-08-07 2020-08-07 Outpatient R [facility] [id number] Univers 09:00:00 09:00:00 ity [facility] 2020-08-02 2020-08-02 [facility] [id number] Univers 09:45:00 09:45:00 AMADO ity of [facility] 2020-08-02 2020-08-02 Outpatient [facility] [id number] Univers 09:30:00 09:30:00 [id number] ity of [facility] 2020-07-31 2020-07-31 Outpatient R [facility] [id number] Univers 09:00:00 09:00:00 [id number] ity of [facility] 2020-07-31 2020-07-31 Outpatient R [facility] [id number] Univers 09:00:00 09:00:00 ity of [facility] 2020-07-26 2020-07-26 Outpatient [facility] [id number] Univers 09:30:00 09:30:00 [id number] ity of [facility] 2020-07-26 2020-07-26 [facility] [id number] Univers 09:30:00 09:30:00 AMADO [facility] 2020-07-24 2020-07-24 [facility] [id number] Univers 11:30:00 11:30:00 ABRIL [id number] ity of [facility] 2020-07-24 2020-07-24 [facility] [id number] Univers 11:30:00 11:30:00 ABRIL ity [facility] 2020-07-19 2020-07-19 Outpatient [facility] [id number] Univers 08:00:00 08:00:00 [id number] ity of [facility] 2020-07-19 2020-07-19 Outpatient P VIANEY [facility] [id number] Univers 08:00:00 08:00:00 AMADO ity [facility] 2020-07-18 2020-07-18 Outpatient R NAA BRIONES [facility] [id number] Univers 08:15:00 08:15:00 [id number] ity of [facility] 2020-07-18 2020-07-18 Outpatient R NAA BRIONES [facility] [id number] Univers 08:15:00 08:15:00 ity of [facility] 2020-07-12 2020-07-12 Outpatient [facility] [id number] Univers 09:30:00 09:30:00 ity of [facility] 2020-07-12 2020-07-12 Outpatient R [facility] [id number] Univers 09:30:00 09:30:00 ity of [facility] 2020-07-05 2020-07-05 Outpatient R [facility] [id number] Univers 15:15:00 15:15:00 ity of [facility] 2020-07-05 2020-07-05 Outpatient R [facility] [id number] Univers 15:15:00 15:15:00 ity of [facility] 2020-07-01 2020-07-01 Outpatient R [facility] [id number] Univers 11:00:00 11:00:00 [id number] ity of [facility] 2020-07-01 2020-07-01 Outpatient R [facility] [id number] Univers 11:00:00 11:00:00 ity of [facility] 2020-06-26 2020-06-26 Outpatient R NAA BRIONES [facility] [id number] Univers 11:30:00 11:30:00 [id number] ity of [facility] 2020-06-26 2020-06-26 Outpatient R NAA BRIONES [facility] [id number] Univers 11:30:00 11:30:00 ity of [facility] 2020 2020 Outpatient R NAA BRIONES [facility] [id number] Univers 11:30:00 11:30:00 [id number] ity of [facility] 2020 2020 Outpatient R NAA BRIONES [facility] [id number] Univers 11:30:00 11:30:00 ity of [facility] 2020-06-20 2020-06-20 Outpatient R NAA BRIONES [facility] [id number] Univers 13:00:00 13:00:00 ity of [facility] 2020-06-20 2020-06-20 Outpatient R NAA BRIONES [facility] [id number] Univers 11:30:00 11:30:00 [id number] ity of [facility] 2020-06-20 2020-06-20 [facility] [id number] Univers 11:30:00 11:30:00 ity of [facility] 2020-05-27 2020-05-27 Outpatient R DAVID [facility] [id number] Univers 14:00:00 14:00:00 BENJAMIN [id number] ity [facility] 2020-05-27 2020-05-27 Outpatient R DAVID [facility] [id number] Univers 14:00:00 14:00:00 BENJAMIN [facility] [place] [facility] 2020-05-20 2020-05-20 Outpatient R [facility] [id number] Univers 14:15:00 14:15:00 [id number] [facility] [place] [facility] 2020-05-17 2020-05-17 Outpatient R ANALI [facility] [id number] Univers 13:00:00 13:00:00 [id number] [facility] [place] [facility] 2020-05-17 2020-05-17 Outpatient R ANALI NAA [facility] [id number] Univers 13:00:00 13:00:00 [facility] [place] [facility] 2020-04-19 2020-04-19 Outpatient R ANALI [facility] [id number] Univers 11:00:00 11:00:00 [id number] [facility] [place] [facility] 2020-04-19 2020-04-19 Outpatient R ANALI [facility] [id number] Univers 11:00:00 11:00:00 [facility] [place] [facility] 2020-01-04 2020-01-04 Outpatient R ABRAM [facility] [id number] Univers 13:00:00 13:00:00 TRISTA [facility] [place] [facility] 2020-01-04 2020-01-04 Outpatient R ABRAM [facility] [id number] Univers 13:00:00 13:00:00 TRISTA [facility] [place] [facility] 2020-01-01 2020-01-01 [facility] [id number] Univers [facility]:30[facility]00 [facility]30[facility] This patient has no known results.
--- NOTE | 2021-10-01 18:57 | ER ---
Nurse's Notes [facility] Name: Sivakumar Campbell Age: 31 yrs Sex: Female : 1990 Arrival Date: 10/01/2021 Time: 18:33 Bed 8 Private MD: Diagnosis: Acute stress reaction;Abrasion of left forearm Presentation: 10/01 18:34 Chief complaint: EMS states: SCRATCHED L WRIST AFTER DOMESTIC DISPUTE. Coronavirus bp screen: At this time, the client does not indicate any symptoms associated with coronavirus-19. Ebola Screen: No symptoms or risks identified at this time. Complicating Factors: There are no complicating factors for this patient. Initial Sepsis Screen: Does the patient meet any 2 criteria? No. Patient's initial sepsis screen is negative. Does the patient have a suspected source of infection? No. Patient's initial sepsis screen is negative. Risk Assessment: Do you want to hurt yourself or someone else? Patient reports no desire to harm self or others. Onset of symptoms was October 01, 2021 at 18:00. 18:34 Method Of Arrival: EMS: [facility] bp 18:34 Acuity: LAURA 2 bp Triage Assessment: 18:36 General: Appears distressed, comfortable, Behavior is cooperative, appropriate for age, bp anxious. Pain: Denies pain. EENT: No deficits noted. Neuro: No deficits noted. Cardiovascular: No deficits noted. Respiratory: No deficits noted. GI: No signs and/or symptoms were reported involving the gastrointestinal system. : No signs and/or symptoms were reported regarding the genitourinary system. Derm: No deficits noted. Musculoskeletal: No deficits noted. Injury Description: Laceration sustained to palmar aspect of left wrist is SUPER[employer] SCRATCHES is bleeding no active bleeding noted. Historical: - Allergies: 18:36 No Known Allergies; bp - Home Meds: 18:36 None [Active]; bp - PMHx: 18:36 None; bp - Immunization history:: Adult Immunizations unknown. - Social history:: Smoking status: unknown. Screenin:37 Abuse screen: Denies threats or abuse. Denies injuries from another. Nutritional bp screening: No deficits noted. Tuberculosis screening: No symptoms or risk factors identified. Fall Risk None identified. Assessment: 18:37 General: SEE TRIAGE NOTE. bp 19:03 Reassessment: PT DENIES SI, D/C HOME WITH FAMILY, DX WITH ACUTE STRESS REACTION. bp Vital Signs: 18:34 BP 112 / 80; Pulse 88; Resp 16; Temp 98; Pulse Ox 98% ; bp ED Course: 18:33 Patient arrived in ED. bp 18:36 Triage completed. bp 18:36 Arm band placed on. bp 18:37 Patient has correct armband on for positive identification. Bed in low position. Call bp light in reach. Side rails up X2. 18:50 Yancy Casillas FNP-C [facility]. kb 18:50 Bernabe Espinosa MD is Attending Physician. kb 19:03 Martin Trotter, RN is Primary Nurse. bp 19:03 No provider procedures requiring assistance completed. Patient did not have IV access bp during this emergency room visit. 19:09 Primary Nurse role handed off by Martin Trotter, JAVIER 4 Administered Medications: No medications were administered Outcome: 18:57 Discharge ordered by MD. kb 19:03 Discharged to home ambulatory, with family. bp 19:03 Condition: stable 19:03 Discharge instructions given to patient, family, Instructed on discharge instructions, follow up and referral plans. Demonstrated understanding of instructions, follow-up care. 19:19 Patient left the ED. as6 Signatures: Yancy Casillas FNP-C FNP-Martin Reynoso, RN RN [place] [id number] Manoj Watson RN RN as6
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
[2021-10-01 19:25] VITALS: BP 112/80; TEMP 98; O2SAT 98
== END 2021-10-01 19:19 | disposition home or self-care (01) ==
LOC: ER 18:15
DX: S50.812A Abrasion of left forearm, initial encounter (principal); F43.0 Acute stress reaction; W45.8XXA Other foreign body or object entering through skin, initial encounter; Y93.89 Activity, other specified; Y92.019 Unspecified place in single-family (private) house as the place of occurrence of the external cause
CPT/HCPCS: 99283

== ENCOUNTER 2023-02-15 10:01 | Emergency (ER) | payer OTHER ==
[2023-02-15 11:12] LABS: Absolute Lymphocytes (CBC) 1.3 K/uL (0.7-4.9); Hematocrit 35.3 % (36.0-45.0); Lymphocytes % 25.9 % (15.3-44.8); MCV 77.6 fL (80-100); MPV 9.2 fL (7.6-11.3); RBC Red Blood Cell Count 4.55 M/uL (3.86-4.86)
--- NOTE | 2023-02-15 11:28 | RAD REPORT ---
EXAM DESCRIPTION: US - Transvaginal OB - 02/15/2023 10:54 am CLINICAL HISTORY: ABD PAIN COMPARISON: OB Complete dated 12/06/2019 FINDINGS: Irregular cystic collection in the endometrial canal and measuring 1.6 x 0.8 x 1.8 cm. The mean "sac" diameter is 1.4 cm. No pole present. The uterus measures 9.8 cm. The right ovary measures 2.7 x 2 x 1.9 cm with volume of 5.3 cc. The left ovary measures 2.2 x 1.5 x 1.8 cm with volume of 3 cc . Bilateral ovarian blood flow is present. IMPRESSION: Irregular fluid collection in the endometrial canal may represent an abnormal gestationa l sac or pseudosac. A normal IUP is not identified. Therefore, an early normal first trimester pregna ncy, early ectopic, or failed first trimester remain in the differential. Suggest short-ter m imaging follow-up . Bilateral ovarian blood flow.
--- NOTE | 2023-02-15 11:28 | RAD REPORT ---
EXAM DESCRIPTION: US - Pelvis Complete - 02/15/2023 10:46 am CLINICAL HISTORY: ABD PAIN COMPARISON: OB Complete dated 12/06/2019 FINDINGS: Irregular cystic collection in the endometrial canal and measuring 1.6 x 0.8 x 1.8 cm. The mean "sac" diameter is 1.4 cm. No pole present. The uterus measures 9.8 cm. The right ovary measures 2.7 x 2 x 1.9 cm with volume of 5.3 cc. The left ovary measures 2.2 x 1.5 x 1.8 cm with volume of 3 cc . Bilateral ovarian blood flow is present. IMPRESSION: Irregular fluid collection in the endometrial canal may represent an abnormal gestationa l sac or pseudosac. A normal IUP is not identified. Therefore, an early normal first trimester pregna ncy, early ectopic, or failed first trimester remain in the differential. Suggest short-ter m imaging follow-up . Bilateral ovarian blood flow.
[2023-02-15 11:44] LABS: Potassium 3.7 mEq/L (3.5-5.1)
--- NOTE | 2023-02-15 13:16 | ER ---
Nurse's Notes [facility] Name: Sivakumar Morgan Age: 32 yrs Sex: Female : 1990 Arrival Date: 02/15/2023 Time: 10:01 Bed 9 Private MD: Diagnosis: Lower abdominal pain, unspecified;Threatened Presentation: 02/15 10:55 Chief complaint: Patient states: abd pain , is approx 8 weeks , no vaginal iw bleeding. Coronavirus screen: At this time, the client does not indicate any symptoms associated with coronavirus-19. Ebola Screen: Patient negative for fever greater than or equal to 101.5 degrees Fahrenheit, and additional compatible Ebola Virus Disease symptoms Patient denies exposure to infectious person. Patient denies travel to an Ebola-affected area in the 21 days before illness onset. No symptoms or risks identified at this time. Initial Sepsis Screen: Does the patient meet any 2 criteria? No. Patient's initial sepsis screen is negative. Does the patient have a suspected source of infection? No. Patient's initial sepsis screen is negative. Risk Assessment: Do you want to hurt yourself or someone else? Patient reports no desire to harm self or others. Onset of symptoms was February 15, 2023. 10:55 Method Of Arrival: Ambulatory iw 10:55 Acuity: LAURA 3 iw Historical: - Allergies: 10:56 unknown antibiotic; iw - Home Meds: 10:56 None [Active]; iw - PMHx: 10:56 None; iw - PSHx: 10:56 D\T\ C; iw Screenin:12 [facility] ED Fall Risk Assessment (Adult) History of falling in the last 3 months, iw including since admission. Abuse screen: Denies threats or abuse. Denies injuries from another. Nutritional screening: No deficits noted. Tuberculosis screening: No symptoms or risk factors identified. Assessment: 13:12 Reassessment: Patient appears in no apparent distress at this time. Patient and/or iw family updated on plan of care and expected duration. Pain level reassessed. Patient is alert, oriented x 3, equal unlabored respirations, skin warm/dry/pink. Vital Signs: 10:55 BP 116 / 79; Pulse 78; Resp 16; Temp 98.2; Pulse Ox 100% on R/A; iw ED Course: 10:02 Patient arrived in ED. rg4 10:05 Osmani Tatum DO is Attending Physician. ms3 10:46 US Transvaginal Ob In Process Unspecified. EDMS 10:47 Pelvis Complete In Process Unspecified. EDMS 10:55 Margy Zayas, RN is Primary Nurse. iw 10:56 Triage completed. iw 10:57 Arm band placed on. iw 11:05 Inserted saline lock: 22 gauge in right antecubital area, using aseptic technique. iw Blood collected. 13:12 Test, Urine Sent. iw 13:12 Urinalysis w/ reflexes Sent. iw Administered Medications: No medications were administered Medication: 13:12 VIS not applicable for this client. iw Outcome: 13:15 Discharge ordered by . ms3 13:21 Patient left the ED. iw Signatures: Dispatcher [employer] EDMargy Wilcox, JAVIER RN iw Soraya Forman rg4 Osmani Tatum DO DO ms3 Corrections: (The following items were deleted from the chart) 11:05 10:55 Resp 16bpm; Pulse Ox 100% RA; Temp 98.2F; iw iw
--- NOTE | 2023-02-15 13:17 | EDPHYS ---
Physician Documentation [facility] Name: Sivakumar Morgan Age: 32 yrs Sex: Female : 1990 Arrival Date: 02/15/2023 Time: 10:01 Bed 9 Private MD: ED Physician Osmani Tatum HPI: 02/15 10:21 This 32 yrs old Black Female presents to ER via Unassigned with complaints of Abdominal ms3 Pain, 8 Weeks . 10:21 32-year-old female with no past medical presents for left lower quadrant abdominal pain ms3 that began 4 hours prior to arrival. Patient states the pain is a 7/10 and described as sharp and throbbing. Patient denies nausea, vomiting, fevers, chills. Patient states she is P8, [id number], with a last known menstrual period date of December 16, 2022. Patient states that she is O+ blood type. Historical: - Allergies: 10:56 unknown antibiotic; iw - Home Meds: 10:56 None [Active]; iw - PMHx: 10:56 None; iw - PSHx: 10:56 D\T\ C; iw ROS: 10:21 Constitutional: Negative for fever, and chills. Neck: Negative for injury, pain, and ms3 swelling, Cardiovascular: Negative for chest pain, and palpitations. Respiratory: Negative for shortness of breath, cough, wheezing, and pleuritic chest pain. 10:21 MS/Extremity: Negative for injury and deformity, Skin: Negative for injury, rash, and discoloration. 10:21 Abdomen/GI: Positive for abdominal pain. 10:21 All other systems are negative. Exam: 10:21 Constitutional: This is a well developed, well nourished patient who is awake, alert, ms3 and in no acute distress. Head/Face: Normocephalic, atraumatic. Chest/axilla: Normal chest wall appearance and motion. Nontender with no deformity. Cardiovascular: Regular rate and rhythm with a normal S1 and S2. No gallops, murmurs, or rubs. Normal PMI, no JVD. No pulse deficits. Respiratory: Lungs have equal breath sounds bilaterally, clear to auscultation and percussion. No rales, rhonchi or wheezes noted. No increased work of breathing, no retractions or nasal flaring. 10:21 Neuro: Awake and alert, GCS 15, oriented to person, place, time, and situation. Cranial nerves II-XII grossly intact. Motor strength 5/5 in all extremities. Sensory grossly intact. Cerebellar exam normal. Normal gait. 10:21 Abdomen/GI: Inspection: abdomen appears normal, Bowel sounds: normal, Palpation: mild abdominal tenderness, in the suprapubic area, right lower quadrant and left lower quadrant. Vital Signs: 10:55 BP 116 / 79; Pulse 78; Resp 16; Temp 98.2; Pulse Ox 100% on R/A; iw MDM: 10:15 Patient medically screened. ms3 10:21 Differential diagnosis: Ectopic , non-specific abd pain, . ms3 13:15 Data reviewed: vital signs, nurses notes, lab test result(s), radiologic studies, ms3 ultrasound, and as a result, I will discharge patient. Counseling: I had a detailed discussion with the patient and/or guardian regarding: the historical points, exam findings, and any diagnostic results supporting the discharge/admit diagnosis, lab results, radiology results, the need for outpatient follow up, to return to the emergency department if symptoms worsen or persist or if there are any questions or concerns that arise at home. Response to treatment: the patient's symptoms have mildly improved after treatment, and as a result, I will discharge patient. Special discussion: I discussed with the patient/guardian in detail that at this point there is no indication for admission to the hospital. It is understood, however, that if the symptoms persist or worsen the patient needs to return immediately for re-evaluation. 02/15 10:16 Order name: Basic Metabolic Panel; Complete Time: 13:09 ms3 02/15 10:16 Order name: CBC with Diff; Complete Time: 11:42 ms3 02/15 10:16 Order name: Test, Urine ms3 02/15 10:16 Order name: Quantitative Hcg; Complete Time: 13:09 ms3 02/15 10:16 Order name: Urinalysis w/ reflexes ms3 02/15 10:16 Order name: US Transvaginal Ob; Complete Time: 11:42 ms3 02/15 10:47 Order name: Pelvis Complete; Complete Time: 11:42 EDMS 02/15 10:16 Order name: IV Saline Lock; Complete Time: 11:05 ms3 02/15 10:16 Order name: Labs collected and sent; Complete Time: 11:05 ms3 02/15 10:16 Order name: NPO; Complete Time: 11:05 ms3 Administered Medications: No medications were administered Disposition Summary: 02/15/23 13:15 Discharge Ordered Location: Home ms3 Condition: Stable ms3 Diagnosis - Lower abdominal pain, unspecified ms3 - Threatened ms3 Followup: ms3 - With: Private Physician - When: 2 - 3 days - Reason: Recheck today's complaints Discharge Instructions: - Discharge Summary Sheet ms3 - Threatened Miscarriage ms3 - Abdominal Pain During , [id number] ms3 Forms: - Work release form iw - Medication Reconciliation Form ms3 - Thank You Letter ms3 - Antibiotic Education ms3 - Prescription Opioid Use ms3 Signatures: Dispatcher [employer] Margy Matthews, RN RN iw Osmani Tatum DO DO ms3
[2023-02-15 13:19] LABS: Specific Gravity 1.011 (1.005-1.030); Urine Bilirubin NEGATIVE (Negative); Urine Blood Negative (Negative); Urine Clarity Clear (Clear); Urine Color Colorless (Yellow); Urine Glucose NEGATIVE (Negative); Urine Protein NEGATIVE (Negative); Urine Urobilinogen Normal (Normal); Urine pH 7.5 (5.0-7.0)
[2023-02-15 13:22] LABS: Specific Gravity 1.011 (1.005-1.030)
[2023-02-15 14:16] VITALS: BP 116/79; TEMP 98.2; O2SAT 100
== END 2023-02-15 13:21 | disposition home or self-care (01) ==
LOC: ER 10:01
DX: O20.0 Threatened abortion (principal); R10.2 Pelvic and perineal pain; Z3A.08 8 weeks gestation of pregnancy
CPT/HCPCS: 36415; 76817; 76856; 80048; 81003; 81025; 84702; 85025; 99283

== ENCOUNTER 2024-06-03 09:43 | Emergency (ER) | payer OTHER ==
[2024-06-03 10:29] LABS: Hematocrit 31.5 % (36.0-45.0); Hemoglobin 10.3 g/dL (12.0-15.0); MCH 18.8 pg (27.0-35.0); MCHC 32.6 g/dL (32.0-36.0); MCV 57.6 fL (80-100); MPV 8.5 fL (7.6-11.3); Platelets 324 thou/uL (152-406); RBC Red Blood Cell Count 5.47 M/uL (3.86-4.86)
[2024-06-03 10:48] LABS: Anion Gap 15.4 mEq/L (5.0-15.0); Magnesium 1.8 mg/dL (1.6-2.4); Potassium 3.4 mEq/L (3.5-5.1); Troponin High Sensitivity 3.3 pg/mL (<58.9)
[2024-06-03] MEDS ORDERED: NA CHLORIDE 0.9% 1,000 ML ONE (11:17)
[2024-06-03 11:40] LABS: Band Neutrophils 1 % (0-1); Differential Total Cells Count 100; Lymphocytes 23 % (15-42); Monocytes 4 % (0-10); Segmented Neutrophils 70 % (40-80)
[2024-06-03 11:41] LABS: Anisocytosis 2+; Blood Morphology Comment NOTED (NOT SEEN); Hypochromasia 2+; Microcytosis 3+; Platelet Estimate ADEQ
[2024-06-03 11:42] LABS: Ovalocytes SLIGHT; Polychromasia SLIGHT
[2024-06-03 11:43] LABS: Specific Gravity 1.022 (1.005-1.030)
[2024-06-03 11:46] LABS: Specific Gravity 1.022 (1.005-1.030); Urine Bacteria <20 /HPF (<20); Urine Bilirubin NEGATIVE (Negative); Urine Blood Negative (Negative); Urine Clarity Turbid (Clear); Urine Color Yellow (Yellow); Urine Culture Reflex Order NOT NEEDED; Urine Glucose NEGATIVE (Negative); Urine Ketones 4+ (Over) (Negative); Urine Microscopic Reflex YN ORDER UMIC; Urine Mucus 1+ /HPF (None Seen); Urine Nitrite NEGATIVE (Negative); Urine Protein 1+ (Negative); Urine RBC None Seen /HPF (None Seen); Urine Urobilinogen 2+ (Normal); Urine WBC <5 /HPF (<5); Urine Yeast (Budding) Trace /HPF (None Seen); Urine pH 6.5 (5.0-7.0)
--- NOTE | 2024-06-03 13:12 | RAD REPORT ---
EXAM DESCRIPTION: CT - Chest For Pe Angio - 06/03/2024 12:22 pm CLINICAL HISTORY: Chest pain COMPARISON: None. TECHNIQUE: Dynamically enhanced axial 3 mm thick images of the chest were obtained during administra tion of 100 mL Isovue 370 IV contrast. Coronal and oblique reconstruction images were generated and r eviewed. Exam utilizes a protocol for optimal evaluation of pulmonary arterial tree. Maximum intensity projections 3D imaging was utilized All CT scans are performed using dose optimization technique as appropriate and may include automated exposure control or mA/KV adjustment according to patient size. FINDINGS: A pulmonary embolus is not seen. A thoracic aortic aneurysm is not noted. A pleural effusion is not seen. A pericardial effusion is not seen. A lung consolidation is not present. Lungs are hyperaerated Small hepatic cyst IMPRESSION: Negative for a pulmonary embolism.
--- NOTE | 2024-06-03 13:14 | RAD REPORT ---
EXAM DESCRIPTION: Georgi Single View06/03/2024 10:52 am CLINICAL HISTORY: Chest pain COMPARISON: none FINDINGS: Lungs are hyperaerated. The lungs appear clear of acute infiltrate. The heart is normal size IMPRESSION: No acute abnormalities displayed
--- NOTE | 2024-06-03 13:25 | EDPHYS ---
Physician Documentation [facility] Name: Sivakumar Morgan Age: 33 yrs Sex: Female : 1990 Arrival Date: 06/03/2024 Time: 09:43 Bed 6 Private MD: ED Physician Prashanth Bailey HPI: 06/03 09:50 This 33 yrs old Black Female presents to ER via Unassigned with complaints of Chest kb Pain, Shortness Of Breath, Covid Positive. 09:50 Pt is a 33 year old female who presents for chest pain and shortness of breath that kb started 4 days ago and has been getting worse. States she tested positive for covid 4 days ago as well. Denies fever. Reports vomiting, slight cough and congestion. Historical: - Allergies: 10:00 unknown antibiotic; ap3 - Home Meds: 10:00 None [Active]; ap3 - PSHx: 10:00 D\T\ C; ap3 - Immunization history:: Client reports receiving the 1st dose of the Covid vaccine, Client reports receiving the Jose Manuel \T\ Jose Manuel single-dose vaccine. - Infectious Disease History:: Denies. - Social history:: Smoking status: Reported history of juuling and/or vaping. ROS: 09:50 Constitutional: As per HPI kb Exam: 09:52 Constitutional: This is a well developed, well nourished patient who is awake, alert, kb and in no acute distress. Head/Face: Normocephalic, atraumatic. ENT: Moist Mucous membranes Cardiovascular: Regular rate Abdomen/GI: Soft, non-tender. No distention Skin: Warm, dry with normal turgor. Normal color. MS/ Extremity: Pulses equal, no cyanosis. Neurovascular intact. Full, normal range of motion. Neuro: Awake and alert, GCS 15, oriented to person, place, time, and situation. Moves all extremities. Normal gait. 09:52 Respiratory: the patient does not display signs of respiratory distress, Respirations: tachypnea, Breath sounds: are clear throughout, 10:22 ECG was reviewed by the Attending Physician. kb Vital Signs: 09:58 BP 153 / 100; Pulse 91; Resp 21; Pulse Ox 100% on R/A; Weight 63.5 kg; Height 5 ft. 5 ap3 in. ; Pain 6/10; 10:21 Temp 99(O); rs5 10:24 BP 136 / 93; Pulse 88; Resp 17; Pulse Ox 99% on R/A; rs5 12:01 BP 139 / 81; Pulse 74; Resp 17; Pulse Ox 99% on R/A; rs5 13:32 BP 130 / 88; Pulse 70; Resp 17; Pulse Ox 99% on R/A; rs5 09:58 Body Mass Index 23.30 (63.50 kg, 165.1 cm) ap3 09:58 Pain Scale: Adult ap3 MDM: 09:46 Patient medically screened. kb 09:52 Data reviewed: vital signs, nurses notes. kb 13:24 Differential diagnosis: URI, PE, pneumonia, sars. Counseling: I had a detailed kb discussion with the patient and/or guardian regarding the historical points, exam findings, and any diagnostic results supporting the discharge/admit diagnosis, lab results, radiology results, the need for outpatient follow up, a family practitioner, to return to the emergency department if symptoms worsen or persist or if there are any questions or concerns that arise at home. ED course: Discussed risks/benefits of CT with patient and treatment options. Pt prefers to do CT scan to rule out PE. . 06/03 09:52 Order name: Basic Metabolic Panel; Complete Time: 11:02 kb 06/03 09:52 Order name: CBC with Diff; Complete Time: 11:46 kb 06/03 09:52 Order name: D-Dimer; Complete Time: 11:02 kb 06/03 09:52 Order name: Magnesium; Complete Time: 11:02 kb 06/03 09:52 Order name: NT PRO-BNP; Complete Time: 11:02 kb 06/03 09:52 Order name: Troponin HS; Complete Time: 11:02 kb 06/03 10:39 Order name: Manual Differential; Complete Time: 11:46 EDMS 06/03 11:02 Order name: Test, Urine; Complete Time: 11:46 kb 06/03 11:02 Order name: Urinalysis w/ reflexes; Complete Time: 11:51 kb 06/03 09:52 Order name: XRAY Chest (1 view); Complete Time: 13:14 kb 06/03 11:02 Order name: CT Chest For PE Angio; Complete Time: 13:13 kb 06/03 09:52 Order name: Cardiac monitoring; Complete Time: 10:09 kb 06/03 09:52 Order name: EKG - Nurse/Tech; Complete Time: 10:23 kb 06/03 09:52 Order name: IV Saline Lock; Complete Time: 10:23 kb 06/03 09:52 Order name: Labs collected and sent; Complete Time: 10:24 kb 06/03 09:52 Order name: O2 Per Protocol; Complete Time: 10: kb 06/03 09:52 Order name: O2 Sat Monitoring; Complete Time: 10: kb 06/03 13:14 Order name: PO challenge; Complete Time: 13:30 kb EC:22 Rate is 85 beats/min. Rhythm is regular. QRS [place] is Normal. NE interval is normal at kb 114 msec. QRS interval is normal at 78 msec. QT interval is normal at 430 msec. Administered Medications: 11:10 Drug: NS 0.9% IV 1000 ml IV at 1000 ml once Route: IV; Rate: 1000 ml; Site: left rs5 antecubital; 12:20 Follow up: IV Status: Completed infusion rs5 Disposition: 13:53 Co-signature as Attending Physician, Prashanth Bailey MD I reviewed the patient's care rt provided by the Advanced Practice Provider and agree with the diagnosis and treatment plan. Disposition Summary: 06/03/24 13:24 Discharge Ordered Notes: Location: Home kb Condition: Stable kb Diagnosis - SARS-associated coronavirus as the cause of diseases classified elsewhere kb Followup: kb - With: Emergency Department - When: As needed - Reason: Worsening of condition Followup: kb - With: Private Physician - When: 2 - 3 days - Reason: Recheck today's complaints, Continuance of care, Re-evaluation by your physician Discharge Instructions: - Discharge Summary Sheet kb - COVID-19 kb - Viral Illness, Adult kb Forms: - Medication Reconciliation Form kb - Antibiotic Education kb - Prescription Opioid Use kb - Patient Portal Instructions kb - Leadership Thank You Letter kb Signatures: Dispatcher [employer] [facility] Yancy Casillas FNP-C FNP-Ckb Prokisch, Amanda RN RN ap3 Prashanth Bailey MD MD rt Jacky Newman RN RN rs5 Corrections: (The following items were deleted from the chart) 09:53 09:53 BASIC METABOLIC PANEL+C.LAB.BRZ ordered. [facility] EDMS 09:53 09:53 CBC+H.LAB.BRZ ordered. EDMS EDMS :53 09:53 D-DIMER+COAG.LAB.BRZ ordered. EDMS EDMS :53 09:53 MAGNESIUM+C.LAB.BRZ ordered. EDMS EDMS :53 09:53 PROBNP+C.LAB.BRZ ordered. EDMS EDMS :53 09:53 Troponin High Sensitivity+C.LAB.BRZ ordered. EDMS EDMS :53 09:53 Chest Single View+RAD.RAD.BRZ ordered. EDMS EDMS 10:01 10:00 Allergies: unknown antibiotic; ap3 ap3
--- NOTE | 2024-06-03 13:25 | ER ---
Nurse's Notes [facility] Name: Sivakumar Morgan Age: 33 yrs Sex: Female : 1990 Arrival Date: 06/03/2024 Time: 09:43 Bed 6 Private MD: Diagnosis: SARS-associated coronavirus as the cause of diseases classified elsewhere Presentation: 06/03 09:58 Chief complaint: Patient states: she tested positive for COVID on Wednesday05/31/24, ap3 and is having chest tightness and heaviness that isn't getting any better. Patient currently rates her pain as a 6/10 on the pain scale. Coronavirus screen: Client presents with at least one sign or symptom that may indicate coronavirus-19. Ebola Screen: No symptoms or risks identified at this time. Initial Sepsis Screen: Does the patient meet any 2 criteria? RR > 20 per min. HR > 90 bpm. Does the patient have a suspected source of infection? No. Patient's initial sepsis screen is negative. Risk Assessment: Do you want to hurt yourself or someone else? Patient reports no desire to harm self or others. Onset of symptoms was May 31, 2024. 09:58 Method Of Arrival: Ambulatory ap3 10:02 Acuity: LAURA 2 ap3 Triage Assessment: 10:01 General: Appears ill, Behavior is calm, cooperative, appropriate for age. Pain: ap3 Complains of pain in back and chest Quality of pain is described as tightness and pressure. Neuro: Level of Consciousness is awake, alert, obeys commands, Oriented to person, place, time, situation. Cardiovascular: Reports chest pain, shortness of breath. Respiratory: Reports shortness of breath Airway is patent Respiratory effort is even, unlabored, Respiratory pattern is regular, symmetrical. 10:03 Respiratory: Reports pain with respiration. ap3 Historical: - Allergies: 10:00 unknown antibiotic; ap3 - Home Meds: 10:00 None [Active]; ap3 - PSHx: 10:00 D\T\ C; ap3 - Immunization history:: Client reports receiving the 1st dose of the Covid vaccine, Client reports receiving the Jose Manuel \T\ Jose Manuel single-dose vaccine. - Infectious Disease History:: Denies. - Social history:: Smoking status: Reported history of juuling and/or vaping. Screenin:03 Abuse screen: Denies threats or abuse. Nutritional screening: No deficits noted. ap3 Tuberculosis screening: No symptoms or risk factors identified. 10:05 [facility] ED Fall Risk Assessment (Adult) History of falling in the last 3 months, rs5 including since admission No falls in past 3 months (0 pts) Confusion or Disorientation No (0 pts) Intoxicated or Sedated No (0 pts) Impaired Gait No (0 pts) Mobility Assist Device Used No (0 pt) Altered Elimination No (0 pt) Score/Fall Risk Level 0 - 2 = Low Risk Oriented to surroundings, Maintained a safe environment. Assessment: 09:57 General: Appears in no apparent distress. uncomfortable, Behavior is calm, cooperative. rs5 Pain: Complains of pain in chest Pain does not radiate. Pain currently is 1 out of 10 on a pain scale. Quality of pain is described as pressure, Pain began. Neuro: Level of Consciousness is awake, alert, obeys commands, Oriented to person, place, time, situation. Cardiovascular: Patient's skin is warm and dry. Respiratory: Airway is patent Respiratory effort is even, unlabored, Respiratory pattern is regular, symmetrical. GI: Abdomen is round non-distended, Abd is soft and non tender X 4 quads. : No signs and/or symptoms were reported regarding the genitourinary system. EENT: No signs and/or symptoms were reported regarding the EENT system. Derm: Skin is intact, Skin is pink, warm \T\ dry. Musculoskeletal: Range of motion: intact in all extremities. 11:09 Reassessment: Patient and/or family updated on plan of care and expected duration. Pain rs5 level reassessed. Patient is alert, oriented x 3, equal unlabored respirations, skin warm/dry/pink. Patient states feeling better. 12:12 Reassessment: No changes from previously documented assessment. rs5 13:32 Reassessment: Patient and/or family updated on plan of care and expected duration. Pain rs5 level reassessed. Patient is alert, oriented x 3, equal unlabored respirations, skin warm/dry/pink. Vital Signs: 09:58 BP 153 / 100; Pulse 91; Resp 21; Pulse Ox 100% on R/A; Weight 63.5 kg; Height 5 ft. 5 ap3 in. ; Pain 6/10; 10:21 Temp 99(O); rs5 10:24 BP 136 / 93; Pulse 88; Resp 17; Pulse Ox 99% on R/A; rs5 12:01 BP 139 / 81; Pulse 74; Resp 17; Pulse Ox 99% on R/A; rs5 13:32 BP 130 / 88; Pulse 70; Resp 17; Pulse Ox 99% on R/A; rs5 09:58 Body Mass Index 23.30 (63.50 kg, 165.1 cm) ap3 09:58 Pain Scale: Adult ap3 ED Course: 09:45 Patient arrived in ED. im 09:46 Yancy Casillas FNP-C is PHCP. kb 09:46 Prashanth Bailey MD is Attending Physician. kb 10:00 Triage completed. ap3 10:03 Arm band placed on right wrist. ap3 10:03 Patient maintains SpO2 saturation greater than 95% on room air. ap3 10:05 Patient has correct armband on for positive identification. Placed in gown. Bed in low rs5 position. Call light in reach. Side rails up X2. Client placed on continuous cardiac and pulse oximetry monitoring. NIBP monitoring applied. case monitor on. 10:05 No provider procedures requiring assistance completed. rs5 10:06 Jacky Newman, RN is Primary Nurse. rs5 10:23 Inserted saline lock: 22 gauge in left antecubital area, using aseptic technique. Blood rs5 collected. Flushed with 10 mL NS. 10:53 XRAY Chest (1 view) In Process Unspecified. EDMS 12:24 CT Chest For PE Angio In Process Unspecified. EDMS 13:40 IV discontinued, intact, bleeding controlled, No redness/swelling at site. Pressure rs5 dressing applied. Administered Medications: 11:10 Drug: NS 0.9% IV 1000 ml IV at 1000 ml once Route: IV; Rate: 1000 ml; Site: left rs5 antecubital; 12:20 Follow up: IV Status: Completed infusion rs5 Medication: 10:23 VIS not applicable for this client. rs5 Outcome: 13:24 Discharge ordered by . kb 13:40 Discharged to home via wheelchair, with family, rs5 13:40 Condition: stable rs5 13:40 Discharge instructions given to patient, family, Instructed on discharge instructions, follow up and referral plans. Demonstrated understanding of instructions, follow-up care, 13:44 Patient left the ED. rs5 Signatures: Dispatcher [employer] EDYancy David, AMANDA JJ-Barbara Beck RN RN ap3 Jacky Newman RN RN rs5 Svetlana Caro Corrections: (The following items were deleted from the chart) 10:01 10:00 Allergies: unknown antibiotic; ap3 ap3 10:03 09:58 Acuity: LAURA 3 ap3 ap3
[2024-06-03 13:50] VITALS: TEMP 99
[2024-06-03 13:51] VITALS: O2SAT 99
[2024-06-03 13:55] VITALS: BP 130/88
--- NOTE | 2024-06-06 12:47 | EKG ---
Test Date: 2024-06-03 Test Time: 10:12:11 Industrial Cook: JOSE CARLOS MEASUREMENT RESULTS: Intervals: Rate: 85 CA: 114 QRSD: 78 QT: 362 QTc: 430 [place]: P: 48 CA: 114 QRS: 78 T: 46 INTERPRETIVE STATEMENTS: Normal sinus rhythm with sinus arrhythmia Normal ECG No previous ECG available for comparison Electronically Signed On 06-06-24 12:41:18 CDT by Morgan Paulson
== END 2024-06-03 13:44 | disposition home or self-care (01) ==
LOC: ER 09:43
DX: U07.1 COVID-19 (principal); R06.02 Shortness of breath
CPT/HCPCS: 93005; 85025; 81001; 80048; 36415; 83735; 81025; 85379; 84484; 83880; 71275; 71045; 96360; 99285; Q9967; J7030